=== PATIENT | male | born 1990 | race Caucasian/White ===

== ENCOUNTER 2025-06-01 10:56 | Emergency (ER) | payer BC, SELFPAY ==
--- OUTSIDE RECORDS SUMMARY | 2025-06-01 10:58 | XMS_ITS ---
Author Name VIKTORIA GOVEA Address [address] [place] [address] Phone Organization [facility] Address [address] [facility] [address] [place] [address] Phone Care Team Providers Care Medical Researcher Name Role Phone PINA GOVEA Unavailable [phone] ALLERGIES, ADVERSE REACTIONS AND ALERTS Allergy Name Allergy Date Allergy Status Allergy Severity Allergy Reaction Tramadol, [RxNorm: 23843] 05/15/2018 Current skin crawling MEDICATIONS RxNorm Brand Name Prescription Ordered Value Order Unit Start Date Date Status Fill Status Indications [id number] tizanidi ne 2 mg tablet SIG: tizanidine 2 mg oral tablet, 28 days, Dispense #140 Tablet, 0 RefillsDirecti ons: Take one by mouth three times daily and two by mouth QHS (one hundred forty) 140 tablet 2017 Historic [id number] gabapent in 300 mg capsule SIG: gabapentin 300 mg oral capsule, 28 days, Dispense #112 Capsule, 0 RefillsDirecti ons: Take 1 by mouth twice daily and two by mouth QHS (one hundred twelve) 112 capsule 2017 Historic [id number] oxycodon e 5 mg tablet SIG: oxycodone 5 mg oral tablet, 28 days, Dispense #28 Tablet, 0 RefillsDirecti ons: Take 1 oral tablet once a day- PRN only (twenty eight) 28 tablet 2017 Historic [id number] oxycodon e 5 mg tablet SIG: oxycodone 5 mg oral tablet, 10 days, Dispense #10 Tablet, 0 RefillsDirecti ons: Take 1 oral tablet once a day- PRN only (ten) 10 tablet 2017 Historic [id number] oxycodon e 5 mg tablet SIG: oxycodone 5 mg oral tablet, 28 days, Dispense #56 Tablet, 0 RefillsDirecti ons: Take 1 oral tablet twice a day -PRN (fifty six) 56 tablet 2017 Historic [id number] gabapent in 300 mg capsule SIG: gabapentin 300 mg oral capsule, 28 days, Dispense #112 Capsule, 0 RefillsDirecti ons: Take 1 by mouth twice daily and two by mouth QHS (one hundred twelve) 112 capsule 2017 Historic [id number] tizanidi ne 2 mg tablet SIG: tizanidine 2 mg oral tablet, 28 days, Dispense #140 Tablet, 0 RefillsDirecti ons: Take one by mouth three times daily and two by mouth QHS (one hundred forty) 140 tablet 2017 Historic [id number] baclofen 10 mg tablet SIG: baclofen 10 mg oral tablet, 28 days, Dispense #84 Tablet, 0 RefillsDirecti ons: Take 1 oral tablet three times a day (eighty four) 84 tablet 2017 Historic [id number] oxycodon e 5 mg tablet SIG: oxycodone 5 mg oral tablet, 28 days, Dispense #56 Tablet, 0 RefillsDirecti ons: Take 1 oral tablet twice a day -PRN (fifty six) 56 tablet 2017 Historic [id number] gabapent in 300 mg capsule SIG: gabapentin 300 mg oral capsule, 28 days, Dispense #112 Capsule, 0 RefillsDirecti ons: Take 1 by mouth twice daily and two by mouth QHS (one hundred twelve) 112 capsule 2017 Historic [id number] Xanax 1 mg tablet SIG: Xanax 1 mg oral tablet, 1 days, Dispense #1 Tablet, 0 RefillsDirecti ons: Take 1 oral tablet once a day/PRN 1 tablet 2017 Historic [id number] Belsomra 15 mg tablet SIG: Belsomra 15 mg oral tablet, 30 days, Dispense #30 Tablet, 0 RefillsDirecti ons: Take 1 oral tablet at bedtime- QHS (thirty) 30 tablet 2017 Historic [id number] gabapent in 300 mg capsule SIG: gabapentin 300 mg oral capsule, 28 days, Dispense #112 Capsule, 2 RefillsDirecti ons: Take 1 by mouth twice daily and two by mouth QHS (one hundred twelve) 112 capsule 2017 Historic [id number] baclofen 10 mg tablet SIG: baclofen 10 mg oral tablet, 28 days, Dispense #84 Tablet, 2 RefillsDirecti ons: Take 1 oral tablet three times a day (eighty four) 84 tablet 2017 Historic [id number] Narcan 4 mg/actua tion spray,no n-aeroso l SIG: Narcan 4 mg/actuation nasal spray,non-aero ignacia, 2 days, Dispense #2 Novelty, 0 RefillsDirecti ons: 4mg (contents of 1 nasal spray) as a single dose; may repeat every 2 to 3 minutes. 2 spray,n on-aero ignacia 2017 Historic [id number] oxycodon e 5 mg tablet SIG: oxycodone 5 mg oral tablet, 28 days, Dispense #56 Tablet, 0 RefillsDirecti ons: Take 1 oral tablet twice a day -PRN (fifty six) 56 tablet 2017 Historic [id number] Belsomra 15 mg tablet SIG: Belsomra 15 mg oral tablet, 30 days, Dispense #30 Tablet, 2 RefillsDirecti ons: Take 1 oral tablet at bedtime- QHS (thirty) 30 tablet 2017 Historic [id number] oxycodon e 5 mg tablet SIG: oxycodone 5 mg oral tablet, 28 days, Dispense #56 Tablet, 0 RefillsDirecti ons: Take 1 oral tablet twice a day -PRN (fifty six) 56 tablet 2017 Historic [id number] oxycodon e 5 mg tablet SIG: oxycodone 5 mg oral tablet, 28 days, Dispense #56 Tablet, 0 RefillsDirecti ons: Take 1 oral tablet twice a day -PRN (fifty six) 56 tablet 2017 Historic [id number] tizanidi ne 2 mg tablet SIG: tizanidine 2 mg oral tablet, 28 days, Dispense #112 Tablet, 0 RefillsDirecti ons: Take 1/2-1 by mouth QID- PRN (one hundred forty) 112 tablet 2017 Historic [id number] gabapent in 300 mg capsule SIG: gabapentin 300 mg oral capsule, 28 days, Dispense #112 Capsule, 2 RefillsDirecti ons: Take 1 by mouth twice daily and two by mouth QHS (one hundred twelve) 112 capsule 2017 Historic [id number] oxycodon e 5 mg tablet SIG: oxycodone 5 mg oral tablet, 28 days, Dispense #84 Tablet, 0 RefillsDirecti ons: Take 1 oral tablet TID -PRN (eighty four) 84 tablet 2017 Historic [id number] tizanidi ne 2 mg tablet SIG: tizanidine 2 mg oral tablet, 28 days, Dispense #112 Tablet, 0 RefillsDirecti ons: Take 1/2-1 by mouth QID- PRN (one hundred forty) 112 tablet 2018 Historic [id number] gabapent in 300 mg capsule SIG: gabapentin 300 mg oral capsule, 28 days, Dispense #112 Capsule, 2 RefillsDirecti ons: Take 1 by mouth twice daily and two by mouth QHS (one hundred twelve) 112 capsule 2018 Historic [id number] oxycodon e 5 mg tablet SIG: oxycodone 5 mg oral tablet, 14 days, Dispense #42 Tablet, 0 RefillsDirecti ons: Take 1 oral tablet three times a day- PRN (forty two) PLEASE FILL FOR BRIDGE RX 42 tablet 2018 Historic [id number] oxycodon e 5 mg tablet SIG: oxycodone 5 mg oral tablet, 14 days, Dispense #42 Tablet, 0 RefillsDirecti ons: Take 1 oral tablet three times a day- PRN (forty two) PLEASE FILL FOR BRIDGE RX 42 tablet 2018 Historic [id number] oxycodon e 5 mg tablet SIG: oxycodone 5 mg oral tablet, 7 days, Dispense #21 Tablet, 0 RefillsDirecti ons: Take 1 oral tablet three times a day- PRN (forty two) PLEASE FILL FOR BRIDGE RX 21 tablet 2018 Historic [id number] oxycodon e 5 mg tablet SIG: oxycodone 5 mg oral tablet, 7 days, Dispense #21 Tablet, 0 RefillsDirecti ons: Take 1 oral tablet three times a day- PRN (twenty one) PLEASE FILL FOR BRIDGE RX 21 tablet 2018 Historic [id number] oxycodon e 5 mg tablet SIG: oxycodone 5 mg oral tablet, 4 days, Dispense #12 Tablet, 0 RefillsDirecti ons: Take 1 oral tablet three times a day- PRN (twelve) PLEASE FILL FOR BRIDGE RX 12 tablet 2018 Historic [id number] oxycodon e 5 mg tablet SIG: oxycodone 5 mg oral tablet, 28 days, Dispense #84 Tablet, 0 RefillsDirecti ons: Take 1 oral tablet TID -PRN (eighty four) 84 tablet 2018 Historic [id number] tizanidi ne 2 mg tablet SIG: tizanidine 2 mg oral tablet, 28 days, Dispense #112 Tablet, 0 RefillsDirecti ons: Take 1/2-1 by mouth QID- PRN (one hundred forty) 112 tablet 2018 Historic [id number] oxycodon e 5 mg tablet SIG: oxycodone 5 mg oral tablet, 28 days, Dispense #84 Tablet, 0 RefillsDirecti ons: Take 1 oral tablet TID -PRN (eighty four) 84 tablet 2018 Historic [id number] oxycodon e 5 mg tablet SIG: oxycodone 5 mg oral tablet, 28 days, Dispense #84 Tablet, 0 RefillsDirecti ons: Take 1 oral tablet TID -PRN (eighty four) 84 tablet 2018 Historic [id number] Dilaudid 2 mg tablet SIG: Dilaudid 2 mg oral tablet, 28 days, Dispense #84 Tablet, 0 RefillsDirecti ons: Take 1/2-1 oral tablet three times a day- PRN (eighty four) 84 tablet 2018 Historic [id number] gabapent in 300 mg capsule SIG: gabapentin 300 mg oral capsule, 28 days, Dispense #112 Capsule, 2 RefillsDirecti ons: Take 1 by mouth twice daily and two by mouth QHS (one hundred twelve) 112 capsule 2018 Historic [id number] Belsomra 15 mg tablet SIG: Belsomra 15 mg oral tablet, 30 days, Dispense #30 Tablet, 2 RefillsDirecti ons: Take 1 oral tablet at bedtime- QHS (thirty) 30 tablet 2018 Historic [id number] tizanidi ne 2 mg tablet SIG: tizanidine 2 mg oral tablet, 28 days, Dispense #112 Tablet, 0 RefillsDirecti ons: Take 1/2-1 by mouth QID- PRN (one hundred forty) 112 tablet 2018 Historic [id number] Belsomra 15 mg tablet SIG: Belsomra 15 mg oral tablet, 30 days, Dispense #30 Tablet, 2 RefillsDirecti ons: Take 1 oral tablet at bedtime- QHS (thirty) 30 tablet 2018 Historic [id number] gabapent in 300 mg capsule SIG: gabapentin 300 mg oral capsule, 28 days, Dispense #112 Capsule, 2 RefillsDirecti ons: Take 1 by mouth twice daily and two by mouth QHS (one hundred twelve) 112 capsule 2018 Historic [id number] Dilaudid 2 mg tablet SIG: Dilaudid 2 mg oral tablet, 28 days, Dispense #126 Tablet, 0 RefillsDirecti ons: Take 1.5 oral tablet three times a day- PRN (one hundred twenty six) 126 tablet 2018 Historic [id number] Dilaudid 2 mg tablet SIG: Dilaudid 2 mg oral tablet, 28 days, Dispense #126 Tablet, 0 RefillsDirecti ons: Take 1.5 oral tablet three times a day- PRN (one hundred twenty six) 126 tablet 2018 Historic [id number] Dilaudid 2 mg tablet SIG: Dilaudid 2 mg oral tablet, 28 days, Dispense #126 Tablet, 0 RefillsDirecti ons: Take 1.5 oral tablet three times a day- PRN (one hundred twenty six) 126 tablet 2018 Historic [id number] gabapent in 300 mg capsule SIG: gabapentin 300 mg oral capsule, 28 days, Dispense #112 Capsule, 2 RefillsDirecti ons: Take 1 by mouth twice daily and two by mouth QHS (one hundred twelve) 112 capsule 2018 Historic [id number] Belsomra 15 mg tablet SIG: Belsomra 15 mg oral tablet, 30 days, Dispense #30 Tablet, 2 RefillsDirecti ons: Take 1 oral tablet at bedtime- QHS (thirty) 30 tablet 2018 Historic [id number] tizanidi ne 2 mg tablet SIG: tizanidine 2 mg oral tablet, 28 days, Dispense #112 Tablet, 0 RefillsDirecti ons: Take 1/2-1 by mouth QID- PRN (one hundred forty) 112 tablet 2018 Historic [id number] Dilaudid 2 mg tablet SIG: Dilaudid 2 mg oral tablet, 28 days, Dispense #126 Tablet, 0 RefillsDirecti ons: Take 1.5 oral tablet three times a day- PRN (one hundred twenty six) 126 tablet 2018 Historic [id number] Dilaudid 2 mg tablet SIG: Dilaudid 2 mg oral tablet, 21 days, Dispense #63 Tablet, 0 RefillsDirecti ons: Take 1.5 oral tablet three times a day- PRN (sixty three) 63 tablet 2018 Historic [id number] Dilaudid 2 mg tablet SIG: Dilaudid 2 mg oral tablet, 28 days, Dispense #126 Tablet, 0 RefillsDirecti ons: Take 1.5 oral tablet three times a day- PRN (one hundred twenty six) 126 tablet 2018 Historic [id number] Lyrica 50 mg capsule SIG: Lyrica 50 mg oral capsule, 28 days, Dispense #84 Capsule, 0 RefillsDirecti ons: Take 1 oral capsule QHS, titrate to TID as tolerated (eighty four) 84 capsule 2018 Historic [id number] tizanidi ne 4 mg tablet SIG: tizanidine 4 mg oral tablet, 28 days, Dispense #112 Tablet, 0 RefillsDirecti ons: Take 1/2-1 oral tablet four times a day- PRN (one hundred twelve) 112 tablet 2018 Historic [id number] Dilaudid 2 mg tablet SIG: Dilaudid 2 mg oral tablet, 28 days, Dispense #126 Tablet, 0 RefillsDirecti ons: Take 1.5 oral tablet three times a day- PRN (one hundred twenty six) 126 tablet 2018 Historic [id number] Belsomra 15 mg tablet SIG: Belsomra 15 mg oral tablet, 30 days, Dispense #30 Tablet, 2 RefillsDirecti ons: Take 1 oral tablet at bedtime- QHS (thirty) 30 tablet 2018 Historic [id number] Dilaudid 2 mg tablet SIG: Dilaudid 2 mg oral tablet, 28 days, Dispense #126 Tablet, 0 RefillsDirecti ons: Take 1.5 oral tablet three times a day- PRN (one hundred twenty six) 126 tablet 2018 Historic [id number] Lyrica 75 mg capsule SIG: Lyrica 75 mg oral capsule, 28 days, Dispense #112 Capsule, 0 RefillsDirecti ons: Take 1 PO QAM, 1 at lunch, and 2 PO QHS (one hundred twelve) 112 capsule 2018 Historic [id number] Dilaudid 4 mg tablet SIG: Dilaudid 4 mg oral tablet, 28 days, Dispense #84 Tablet, 0 RefillsDirecti ons: Take 1 oral tablet three times a day (eighty four) 84 tablet 2018 Historic [id number] Dilaudid 4 mg tablet SIG: Dilaudid 4 mg oral tablet, 28 days, Dispense #84 Tablet, 0 RefillsDirecti ons: Take 1 oral tablet three times a day (eighty four) 84 tablet 2018 Historic [id number] Lyrica 75 mg capsule SIG: Lyrica 75 mg oral capsule, 28 days, Dispense #112 Capsule, 0 RefillsDirecti ons: Take 1 PO QAM, 1 at lunch, and 2 PO QHS (one hundred twelve) 112 capsule 2018 Historic [id number] tizanidi ne 4 mg tablet SIG: tizanidine 4 mg oral tablet, 28 days, Dispense #112 Tablet, 0 RefillsDirecti ons: Take 1/2-1 oral tablet four times a day- PRN (one hundred twelve) 112 tablet 2018 Historic [id number] tizanidi ne 4 mg tablet SIG: tizanidine 4 mg oral tablet, 28 days, Dispense #112 Tablet, 0 RefillsDirecti ons: Take 1/2-1 oral tablet four times a day- PRN (one hundred twelve) 112 tablet 2018 Historic [id number] Lyrica 75 mg capsule SIG: Lyrica 75 mg oral capsule, 28 days, Dispense #112 Capsule, 2 RefillsDirecti ons: Take 1 PO QAM, 1 at lunch, and 2 PO QHS (one hundred twelve) 112 capsule 2018 Historic [id number] Percocet 5-325 mg tablet SIG: Percocet 5-325 mg oral tablet, 28 days, Dispense #84 Tablet, 0 RefillsDirecti ons: Take 1/2-1 oral tablet three times a day- as directed (eighty four) 84 tablet 2018 Historic [id number] Percocet 5-325 mg tablet SIG: Percocet 5-325 mg oral tablet, 14 days, Dispense #42 Tablet, 0 RefillsDirecti ons: Take 1/2-1 oral tablet three times a day- as directed (forty two) 42 tablet 2019 Historic [id number] Percocet 5-325 mg tablet SIG: Percocet 5-325 mg oral tablet, 14 days, Dispense #42 Tablet, 0 RefillsDirecti ons: Take 1/2-1 oral tablet three times a day- as directed (forty two) 42 tablet 2019 Historic [id number] Lexapro 10 mg tablet SIG: Lexapro 10 mg oral tablet, 28 days, Dispense #28 Tablet, 0 RefillsDirecti ons: Take 1 oral tablet once a day (twenty eight) 28 tablet 2019 Historic [id number] Lyrica 75 mg capsule SIG: Lyrica 75 mg oral capsule, 28 days, Dispense #112 Capsule, 2 RefillsDirecti ons: Take 1 PO QAM, 1 at lunch, and 2 PO QHS (one hundred twelve) 112 capsule 2019 Historic [id number] Percocet 5-325 mg tablet SIG: Percocet 5-325 mg oral tablet, 7 days, Dispense #21 Tablet, 0 RefillsDirecti ons: Take 1/2-1 oral tablet three times a day- as directed (twenty one) 21 tablet 2019 Historic [id number] Belsomra 15 mg tablet SIG: Belsomra 15 mg oral tablet, 30 days, Dispense #30 Tablet, 2 RefillsDirecti ons: Take 1 oral tablet at bedtime- QHS (thirty) 30 tablet 2019 Historic [id number] Lyrica 75 mg capsule SIG: Lyrica 75 mg oral capsule, 28 days, Dispense #112 Capsule, 2 RefillsDirecti ons: Take 1 PO QAM, 1 at lunch, and 2 PO QHS (one hundred twelve) 112 capsule 2019 Historic [id number] Percocet 5-325 mg tablet SIG: Percocet 5-325 mg oral tablet, 7 days, Dispense #21 Tablet, 0 RefillsDirecti ons: Take 1/2-1 oral tablet three times a day- as directed (twenty one) 21 tablet 2019 Historic [id number] Belsomra 15 mg tablet SIG: Belsomra 15 mg oral tablet, 30 days, Dispense #30 Tablet, 2 RefillsDirecti ons: Take 1 oral tablet at bedtime- QHS (thirty) 30 tablet 2019 Historic [id number] Percocet 5-325 mg tablet SIG: Percocet 5-325 mg oral tablet, 7 days, Dispense #21 Tablet, 0 RefillsDirecti ons: Take 1/2-1 oral tablet three times a day- as directed (twenty one) 21 tablet 2019 Historic [id number] cycloben zaprine 10 mg tablet SIG: cyclobenzaprin e 10 mg oral tablet, 28 days, Dispense #84 Tablet, 0 RefillsDirecti ons: Take 1 oral tablet three times a day- PRN (eighty four) 84 tablet 2019 Historic [id number] Percocet 5-325 mg tablet SIG: Percocet 5-325 mg oral tablet, 10 days, Dispense #30 Tablet, 0 RefillsDirecti ons: Take 1 oral tablet three times a day- as directed (thirty) 30 tablet 2019 Historic [id number] Lexapro 10 mg tablet SIG: Lexapro 10 mg oral tablet, 28 days, Dispense #28 Tablet, 0 RefillsDirecti ons: Take 1 oral tablet once a day (twenty eight) 28 tablet 2019 Historic [id number] Percocet 5-325 mg tablet SIG: Percocet 5-325 mg oral tablet, 10 days, Dispense #30 Tablet, 0 RefillsDirecti ons: Take 1 oral tablet three times a day- as directed (thirty) 30 tablet 2019 Historic [id number] Percocet 5-325 mg tablet SIG: Percocet 5-325 mg oral tablet, 4 days, Dispense #12 Tablet, 0 RefillsDirecti ons: Take 1 oral tablet three times a day- as directed (twelve) 12 tablet 2019 Historic [id number] Percocet 5-325 mg tablet SIG: Percocet 5-325 mg oral tablet, 7 days, Dispense #21 Tablet, 0 RefillsDirecti ons: Take 1 oral tablet three times a day- as directed (twenty one) 21 tablet 2019 Historic [id number] baclofen 10 mg tablet SIG: baclofen 10 mg oral tablet, 14 days, Dispense #42 Tablet, 0 RefillsDirecti ons: Take 1/2-1 oral tablet three times a day- PRN (forty two) 42 tablet 2019 Historic [id number] Percocet 5-325 mg tablet SIG: Percocet 5-325 mg oral tablet, 14 days, Dispense #42 Tablet, 0 RefillsDirecti ons: Take 1 oral tablet three times a day- as directed (forty two) 42 tablet 2019 Historic [id number] Lexapro 10 mg tablet SIG: Lexapro 10 mg oral tablet, 28 days, Dispense #28 Tablet, 0 RefillsDirecti ons: Take 1 oral tablet once a day (twenty eight) 28 tablet 2019 Historic [id number] Lexapro 20 mg tablet SIG: Lexapro 20 mg oral tablet, 28 days, Dispense #28 Tablet, 0 RefillsDirecti ons: Take 1 oral tablet once a day (twenty eight) 28 tablet 2019 Historic [id number] Percocet 7.5-325 mg tablet SIG: Percocet 7.5-325 mg oral tablet, 14 days, Dispense #42 Tablet, 0 RefillsDirecti ons: Take 1 oral tablet three times a day- as directed (forty two) 42 tablet 2019 Historic [id number] baclofen 10 mg tablet SIG: baclofen 10 mg oral tablet, 14 days, Dispense #42 Tablet, 0 RefillsDirecti ons: Take 1/2-1 oral tablet three times a day- PRN (forty two) 42 tablet 2019 Historic [id number] Lexapro 20 mg tablet SIG: Lexapro 20 mg oral tablet, 28 days, Dispense #28 Tablet, 0 RefillsDirecti ons: Take 1 oral tablet once a day (twenty eight) 28 tablet 2019 Historic [id number] Percocet 7.5-325 mg tablet SIG: Percocet 7.5-325 mg oral tablet, 21 days, Dispense #63 Tablet, 0 RefillsDirecti ons: Take 1 oral tablet three times a day- as directed (sixty three) 63 tablet 2019 Historic [id number] baclofen 20 mg tablet SIG: baclofen 20 mg oral tablet, 28 days, Dispense #84 Tablet, 0 RefillsDirecti ons: Take 1/2-1 oral tablet three times a day- PRN (eighty four) 84 tablet 2019 Historic [id number] Narcan 4 mg/actua tion spray,no n-aeroso l SIG: Narcan 4 mg/actuation nasal spray,non-aero ignacia, 2 days, Dispense #2 Each, 0 RefillsDirecti ons: 4mg (contents of 1 nasal spray) as a single dose; may repeat every 2 to 3 minutes. Use in OD only. 2 spray,n on-aero ignacia 2019 Historic [id number] Percocet 7.5-325 mg tablet SIG: Percocet 7.5-325 mg oral tablet, 21 days, Dispense #63 Tablet, 0 RefillsDirecti ons: Take 1 oral tablet three times a day- as directed (sixty three) 63 tablet 2019 Historic [id number] baclofen 20 mg tablet SIG: baclofen 20 mg oral tablet, 28 days, Dispense #84 Tablet, 2 RefillsDirecti ons: Take 1/2-1 oral tablet three times a day- PRN (eighty four) 84 tablet 2019 Historic [id number] Lexapro 20 mg tablet SIG: Lexapro 20 mg oral tablet, 28 days, Dispense #28 Tablet, 2 RefillsDirecti ons: Take 1 oral tablet once a day (twenty eight) 28 tablet 2019 Historic [id number] Percocet 7.5-325 mg tablet SIG: Percocet 7.5-325 mg oral tablet, 7 days, Dispense #21 Tablet, 0 RefillsDirecti ons: Take 1 oral tablet three times a day- as directed (twenty one) 21 tablet 2019 Historic [id number] Percocet 7.5-325 mg tablet SIG: Percocet 7.5-325 mg oral tablet, 28 days, Dispense #84 Tablet, 0 RefillsDirecti ons: Take 1 oral tablet three times a day- as directed (eighty four) 84 tablet 2019 Historic [id number] Lyrica 75 mg capsule SIG: Lyrica 75 mg oral capsule, 28 days, Dispense #112 Capsule, 2 RefillsDirecti ons: Take 1 PO QAM, 1 at lunch, and 2 PO QHS (one hundred twelve) 112 capsule 2019 Historic [id number] Belsomra 15 mg tablet SIG: Belsomra 15 mg oral tablet, 30 days, Dispense #30 Tablet, 2 RefillsDirecti ons: Take 1 oral tablet at bedtime- QHS (thirty) 30 tablet 2019 Historic [id number] baclofen 20 mg tablet SIG: baclofen 20 mg oral tablet, 28 days, Dispense #112 Tablet, 0 RefillsDirecti ons: Take 1 oral tablet four times a day- PRN (one hundred twelve) 112 tablet 2019 Historic [id number] orphenad rine citrate 100 mg tablet extended release SIG: orphenadrine citrate 100 mg oral tablet extended release, 28 days, Dispense #56 Tablet, 0 RefillsDirecti ons: Take 1 oral tablet twice a day, consistently every 12 hours (fifty six) 56 tablet extende d release 2019 Historic [id number] Percocet 7.5-325 mg tablet SIG: Percocet 7.5-325 mg oral tablet, 28 days, Dispense #84 Tablet, 0 RefillsDirecti ons: Take 1 oral tablet three times a day- as directed (eighty four) 84 tablet 2019 Historic [id number] Lexapro 20 mg tablet SIG: Lexapro 20 mg oral tablet, 14 days, Dispense #14 Tablet, 0 RefillsDirecti ons: Take 1 oral tablet once a day (fourteen) 14 tablet 2019 Historic [id number] Percocet 7.5-325 mg tablet SIG: Percocet 7.5-325 mg oral tablet, 14 days, Dispense #42 Tablet, 0 RefillsDirecti ons: Take 1 oral tablet three times a day- as directed (forty two) 42 tablet 2019 Historic [id number] orphenad rine citrate 100 mg tablet extended release SIG: orphenadrine citrate 100 mg oral tablet extended release, 14 days, Dispense #28 Tablet, 0 RefillsDirecti ons: Take 1 oral tablet twice a day, consistently every 12 hours (twenty eight) 28 tablet extende d release 2019 Historic [id number] Lexapro 20 mg tablet SIG: Lexapro 20 mg oral tablet, 14 days, Dispense #14 Tablet, 0 RefillsDirecti ons: Take 1 oral tablet once a day (fourteen) 14 tablet 2019 Historic [id number] Percocet 7.5-325 mg tablet SIG: Percocet 7.5-325 mg oral tablet, 14 days, Dispense #42 Tablet, 0 RefillsDirecti ons: Take 1 oral tablet three times a day- as directed (forty two) 42 tablet 2019 Historic [id number] orphenad rine citrate 100 mg tablet extended release SIG: orphenadrine citrate 100 mg oral tablet extended release, 14 days, Dispense #28 Tablet, 0 RefillsDirecti ons: Take 1 oral tablet twice a day, consistently every 12 hours (twenty eight) 28 tablet extende d release 2019 Historic [id number] Skelaxin 800 mg tablet SIG: Skelaxin 800 mg oral tablet, 28 days, Dispense #84 Tablet, 0 RefillsDirecti ons: Take 1 oral tablet three times a day (eighty four) 84 tablet 2019 Historic [id number] Lexapro 20 mg tablet SIG: Lexapro 20 mg oral tablet, 28 days, Dispense #28 Tablet, 0 RefillsDirecti ons: Take 1 oral tablet once a day (twenty eight) 28 tablet 2019 Historic [id number] Percocet 7.5-325 mg tablet SIG: Percocet 7.5-325 mg oral tablet, 28 days, Dispense #84 Tablet, 0 RefillsDirecti ons: Take 1 oral tablet three times a day- as directed (eighty four) 84 tablet 2019 Historic [id number] chlorzox azone 500 mg tablet SIG: chlorzoxazone 500 mg oral tablet, 28 days, Dispense #84 Tablet, 0 RefillsDirecti ons: Take 1 oral tablet three times a day (eighty four) 84 tablet 2019 Historic [id number] Percocet 7.5-325 mg tablet SIG: Percocet 7.5-325 mg oral tablet, 28 days, Dispense #84 Tablet, 0 RefillsDirecti ons: Take 1 oral tablet three times a day- as directed (eighty four) 84 tablet 2019 Historic [id number] Lyrica 75 mg capsule SIG: Lyrica 75 mg oral capsule, 28 days, Dispense #112 Capsule, 2 RefillsDirecti ons: Take 1 PO QAM, 1 at lunch, and 2 PO QHS (one hundred twelve) 112 capsule 2019 Historic [id number] Lexapro 20 mg tablet SIG: Lexapro 20 mg oral tablet, 28 days, Dispense #42 Tablet, 0 RefillsDirecti ons: Take 1.5 oral tablet once a day (forty two) 42 tablet 2019 Historic [id number] Belsomra 15 mg tablet SIG: Belsomra 15 mg oral tablet, 30 days, Dispense #30 Tablet, 2 RefillsDirecti ons: Take 1 oral tablet at bedtime- QHS (thirty) 30 tablet 2019 Historic [id number] Percocet 7.5-325 mg tablet SIG: Percocet 7.5-325 mg oral tablet, 3 days, Dispense #9 Tablet, 0 RefillsDirecti ons: Take 1 oral tablet three times a day- as directed (nine) 9 tablet 2019 Historic [id number] Lyrica 75 mg capsule SIG: Lyrica 75 mg oral capsule, 3 days, Dispense #12 Capsule, 2 RefillsDirecti ons: Take 1 PO QAM, 1 at lunch, and 2 PO QHS (twelve) 12 capsule 2019 Historic [id number] Lexapro 20 mg tablet SIG: Lexapro 20 mg oral tablet, 3 days, Dispense #5 Tablet, 0 RefillsDirecti ons: Take 1.5 oral tablet once a day (five) 5 tablet 2019 Historic [id number] chlorzox azone 500 mg tablet SIG: chlorzoxazone 500 mg oral tablet, 28 days, Dispense #84 Tablet, 0 RefillsDirecti ons: Take 1 oral tablet three times a day (eighty four) 84 tablet 2019 Historic [id number] Lyrica 75 mg capsule SIG: Lyrica 75 mg oral capsule, 28 days, Dispense #112 Capsule, 0 RefillsDirecti ons: Take 1 PO QAM, 1 at lunch, and 2 PO QHS (one hundred twelve) 112 capsule 2019 Historic [id number] Lexapro 20 mg tablet SIG: Lexapro 20 mg oral tablet, 28 days, Dispense #42 Tablet, 0 RefillsDirecti ons: Take 1.5 oral tablet once a day (forty two) 42 tablet 2019 Historic [id number] chlorzox azone 500 mg tablet SIG: chlorzoxazone 500 mg oral tablet, 28 days, Dispense #112 Tablet, 0 RefillsDirecti ons: Take 1 oral tablet up to four times a day- as directed (one hundred twelve) 112 tablet 2019 Historic [id number] Lexapro 20 mg tablet SIG: Lexapro 20 mg oral tablet, 28 days, Dispense #42 Tablet, 0 RefillsDirecti ons: Take 1.5 oral tablet once a day (forty two) 42 tablet 2019 Historic [id number] Percocet 7.5-325 mg tablet SIG: Percocet 7.5-325 mg oral tablet, 28 days, Dispense #84 Tablet, 0 RefillsDirecti ons: Take 1 oral tablet three times a day- as directed (eighty four) 84 tablet 2019 Historic [id number] Percocet 7.5-325 mg tablet SIG: Percocet 7.5-325 mg oral tablet, 28 days, Dispense #84 Tablet, 0 RefillsDirecti ons: Take 1 oral tablet three times a day- as directed (eighty four) 84 tablet 2019 Historic [id number] Lexapro 20 mg tablet SIG: Lexapro 20 mg oral tablet, 28 days, Dispense #42 Tablet, 0 RefillsDirecti ons: Take 1.5 oral tablet once a day (forty two) 42 tablet 2019 Historic [id number] hydroxyz ine pamoate 25 mg capsule SIG: hydroxyzine pamoate 25 mg oral capsule, 28 days, Dispense #28 Capsule, 0 RefillsDirecti ons: Take 1 oral capsule at bedtime PRN only (twenty eight) 28 capsule 2019 Historic [id number] chlorzox azone 500 mg tablet SIG: chlorzoxazone 500 mg oral tablet, 28 days, Dispense #112 Tablet, 0 RefillsDirecti ons: Take 1 oral tablet up to four times a day- as directed (one hundred twelve) 112 tablet 2019 Historic [id number] chlorzox azone 750 mg tablet SIG: chlorzoxazone 750 mg oral tablet, 28 days, Dispense #112 Tablet, 0 RefillsDirecti ons: Take 1 oral tablet four times a day- PRN (one hundred twelve) 112 tablet 2019 Historic [id number] Percocet 7.5-325 mg tablet SIG: Percocet 7.5-325 mg oral tablet, 28 days, Dispense #84 Tablet, 0 RefillsDirecti ons: Take 1 oral tablet three times a day- as directed (eighty four) 84 tablet 2019 Historic [id number] hydroxyz ine pamoate 25 mg capsule SIG: hydroxyzine pamoate 25 mg oral capsule, 28 days, Dispense #28 Capsule, 2 RefillsDirecti ons: Take 1 oral capsule at bedtime PRN only (twenty eight) 28 capsule 2019 Historic [id number] Lexapro 20 mg tablet SIG: Lexapro 20 mg oral tablet, 28 days, Dispense #42 Tablet, 2 RefillsDirecti ons: Take 1.5 oral tablet once a day (forty two) 42 tablet 2019 Historic [id number] Lyrica 75 mg capsule SIG: Lyrica 75 mg oral capsule, 28 days, Dispense #112 Capsule, 2 RefillsDirecti ons: Take 1 PO QAM, 1 at lunch, and 2 PO QHS (one hundred twelve) 112 capsule 2019 Historic [id number] Lyrica 75 mg capsule SIG: Lyrica 75 mg oral capsule, 28 days, Dispense #112 Capsule, 2 RefillsDirecti ons: Take 1 PO QAM, 1 at lunch, and 2 PO QHS (one hundred twelve) 112 capsule 2020 Historic [id number] Percocet 7.5-325 mg tablet SIG: Percocet 7.5-325 mg oral tablet, 28 days, Dispense #84 Tablet, 0 RefillsDirecti ons: Take 1 oral tablet three times a day- as directed (eighty four) 84 tablet 2020 Historic [id number] tizanidi ne 2 mg tablet SIG: tizanidine 2 mg oral tablet, 28 days, Dispense #84 Tablet, 0 RefillsDirecti ons: Take 1 oral tablet four times a day- PRN (eighty four) 84 tablet 2020 Historic [id number] Lyrica 150 mg capsule SIG: Lyrica 150 mg oral capsule, 28 days, Dispense #56 Capsule, 2 RefillsDirecti ons: Take 1 oral capsule twice a day 56 capsule 2020 Historic [id number] tizanidi ne 2 mg tablet SIG: tizanidine 2 mg oral tablet, 28 days, Dispense #84 Tablet, 3 RefillsDirecti ons: Take 1 oral tablet four times a day- PRN (eighty four) 84 tablet 2020 Historic [id number] Percocet 7.5-325 mg tablet SIG: Percocet 7.5-325 mg oral tablet, 28 days, Dispense #84 Tablet, 0 RefillsDirecti ons: Take 1 oral tablet three times a day- as directed (eighty four) 84 tablet 2020 Historic [id number] Belsomra 15 mg tablet SIG: Belsomra 15 mg oral tablet, 30 days, Dispense #30 Tablet, 2 RefillsDirecti ons: Take 1 oral tablet at bedtime- [facility] (thirty) 30 tablet 2020 Historic [id number] hydroxyz ine pamoate 25 mg capsule SIG: hydroxyzine pamoate 25 mg oral capsule, 28 days, Dispense #28 Capsule, 2 RefillsDirecti ons: Take 1 oral capsule at bedtime PRN only (twenty eight) 28 capsule 2020 Historic [id number] Lexapro 20 mg tablet SIG: Lexapro 20 mg oral tablet, 28 days, Dispense #42 Tablet, 2 RefillsDirecti ons: Take 1.5 oral tablet once a day (forty two) 42 tablet 2020 Historic [id number] Percocet 7.5-325 mg tablet SIG: Percocet 7.5-325 mg oral tablet, 28 days, Dispense #84 Tablet, 0 RefillsDirecti ons: Take 1 oral tablet three times a day- as directed (eighty four) 84 tablet 2020 Historic [id number] Percocet 7.5-325 mg tablet SIG: Percocet 7.5-325 mg oral tablet, 28 days, Dispense #84 Tablet, 0 RefillsDirecti ons: Take 1 oral tablet three times a day- as directed (eighty four) 84 tablet 2020 Historic [id number] Lyrica 150 mg capsule SIG: Lyrica 150 mg oral capsule, 28 days, Dispense #56 Capsule, 2 RefillsDirecti ons: Take 1 oral capsule twice a day (fifty six) 56 capsule 2020 Historic [id number] Percocet 7.5-325 mg tablet SIG: Percocet 7.5-325 mg oral tablet, 28 days, Dispense #84 Tablet, 0 RefillsDirecti ons: Take 1 oral tablet three times a day- as directed (eighty four) 84 tablet 2020 Historic [id number] tizanidi ne 2 mg tablet SIG: tizanidine 2 mg oral tablet, 28 days, Dispense #84 Tablet, 2 RefillsDirecti ons: Take 1 oral tablet four times a day- PRN (eighty four) 84 tablet 2020 Historic [id number] Belsomra 15 mg tablet SIG: Belsomra 15 mg oral tablet, 30 days, Dispense #30 Tablet, 2 RefillsDirecti ons: Take 1 oral tablet at bedtime- [facility] (thirty) 30 tablet 2020 Historic [id number] hydroxyz ine pamoate 25 mg capsule SIG: hydroxyzine pamoate 25 mg oral capsule, 28 days, Dispense #28 Capsule, 2 RefillsDirecti ons: Take 1 oral capsule at bedtime PRN only (twenty eight) 28 capsule 2020 Historic [id number] Lexapro 20 mg tablet SIG: Lexapro 20 mg oral tablet, 28 days, Dispense #42 Tablet, 2 RefillsDirecti ons: Take 1.5 oral tablet once a day (forty two) 42 tablet 2020 Historic [id number] Percocet 7.5-325 mg tablet SIG: Percocet 7.5-325 mg oral tablet, 28 days, Dispense #84 Tablet, 0 RefillsDirecti ons: Take 1 oral tablet three times a day- as directed (eighty four) 84 tablet 2020 Historic [id number] Lexapro 10 mg tablet SIG: Lexapro 10 mg oral tablet, 28 days, Dispense #84 Tablet, 0 RefillsDirecti ons: Take 3 PO QD (eighty four) DOSE CHANGE 84 tablet 2020 Historic [id number] Percocet 7.5-325 mg tablet SIG: Percocet 7.5-325 mg oral tablet, 28 days, Dispense #84 Tablet, 0 RefillsDirecti ons: Take 1 oral tablet three times a day- as directed (eighty four) 84 tablet 2020 Historic [id number] meloxica m 7.5 mg tablet SIG: meloxicam 7.5 mg oral tablet, 28 days, Dispense #56 Tablet, 0 RefillsDirecti ons: Take 1 oral tablet twice a day, consistently every 12 hours WITH FOOD (fifty six) 56 tablet 2020 Historic [id number] Lyrica 150 mg capsule SIG: Lyrica 150 mg oral capsule, 28 days, Dispense #56 Capsule, 2 RefillsDirecti ons: Take 1 oral capsule twice a day (fifty six) 56 capsule 2020 Historic [id number] Percocet 7.5-325 mg tablet SIG: Percocet 7.5-325 mg oral tablet, 28 days, Dispense #84 Tablet, 0 RefillsDirecti ons: Take 1 oral tablet three times a day- as directed (eighty four) 84 tablet 2020 Historic [id number] tizanidi ne 2 mg tablet SIG: tizanidine 2 mg oral tablet, 28 days, Dispense #84 Tablet, 2 RefillsDirecti ons: Take 1 oral tablet four times a day- PRN (eighty four) 84 tablet 2020 Historic [id number] Belsomra 15 mg tablet SIG: Belsomra 15 mg oral tablet, 30 days, Dispense #30 Tablet, 2 RefillsDirecti ons: Take 1 oral tablet at bedtime- [facility] (thirty) 30 tablet 2020 Historic [id number] Lexapro 10 mg tablet SIG: Lexapro 10 mg oral tablet, 28 days, Dispense #84 Tablet, 0 RefillsDirecti ons: Take 3 PO QD (eighty four) 84 tablet 2020 Historic [id number] meloxica m 7.5 mg tablet SIG: meloxicam 7.5 mg oral tablet, 28 days, Dispense #56 Tablet, 1 RefillsDirecti ons: Take 1 oral tablet twice a day, consistently every 12 hours WITH FOOD (fifty six) 56 tablet 2020 Historic [id number] Percocet 7.5-325 mg tablet SIG: Percocet 7.5-325 mg oral tablet, 28 days, Dispense #84 Tablet, 0 RefillsDirecti ons: Take 1 oral tablet three times a day- as directed (eighty four) 84 tablet 2020 Historic [id number] Lexapro 10 mg tablet SIG: Lexapro 10 mg oral tablet, 28 days, Dispense #84 Tablet, 0 RefillsDirecti ons: Take 3 PO QD (eighty four) 84 tablet 2020 Historic [id number] Seroquel 50 mg tablet SIG: Seroquel 50 mg oral tablet, 28 days, Dispense #28 Tablet, 0 RefillsDirecti ons: Take 1 oral tablet at bedtime (twenty eight) STOP Belsomra 28 tablet 2020 Historic [id number] Percocet 7.5-325 mg tablet SIG: Percocet 7.5-325 mg oral tablet, 28 days, Dispense #84 Tablet, 0 RefillsDirecti ons: Take 1 oral tablet three times a day- as directed (eighty four) 84 tablet 2020 Historic [id number] Lexapro 10 mg tablet SIG: Lexapro 10 mg oral tablet, 28 days, Dispense #84 Tablet, 0 RefillsDirecti ons: Take 3 PO QD (eighty four) 84 tablet 2020 Historic [id number] hydroxyz ine pamoate 25 mg capsule SIG: hydroxyzine pamoate 25 mg oral capsule, 28 days, Dispense #28 Capsule, 2 RefillsDirecti ons: Take 1 oral capsule at bedtime PRN only (twenty eight) 28 capsule 2020 Historic [id number] Lyrica 150 mg capsule SIG: Lyrica 150 mg oral capsule, 28 days, Dispense #56 Capsule, 2 RefillsDirecti ons: Take 1 oral capsule twice a day (fifty six) 56 capsule 2020 Historic [id number] tizanidi ne 2 mg tablet SIG: tizanidine 2 mg oral tablet, 28 days, Dispense #84 Tablet, 2 RefillsDirecti ons: Take 1 oral tablet four times a day- PRN (eighty four) 84 tablet 2020 Historic [id number] meloxica m 7.5 mg tablet SIG: meloxicam 7.5 mg oral tablet, 28 days, Dispense #56 Tablet, 2 RefillsDirecti ons: Take 1 oral tablet twice a day, consistently every 12 hours WITH FOOD (fifty six) 56 tablet 2020 Historic [id number] Seroquel 50 mg tablet SIG: Seroquel 50 mg oral tablet, 28 days, Dispense #28 Tablet, 1 RefillsDirecti ons: Take 1 oral tablet at bedtime (twenty eight) 28 tablet 2020 Historic [id number] Percocet 7.5-325 mg tablet SIG: Percocet 7.5-325 mg oral tablet, 28 days, Dispense #84 Tablet, 0 RefillsDirecti ons: Take 1 oral tablet three times a day- as directed (eighty four) 84 tablet 2020 Historic [id number] Lexapro 10 mg tablet SIG: Lexapro 10 mg oral tablet, 28 days, Dispense #84 Tablet, 1 RefillsDirecti ons: Take 3 PO QD (eighty four) 84 tablet 2020 Historic [id number] Percocet 7.5-325 mg tablet SIG: Percocet 7.5-325 mg oral tablet, 14 days, Dispense #42 Tablet, 0 RefillsDirecti ons: Take 1 oral tablet three times a day- as directed (forty two) PARTIAL FILL 42 tablet 2020 Historic [id number] Percocet 10-325 mg tablet SIG: Percocet 10-325 mg oral tablet, 14 days, Dispense #56 Tablet, 0 RefillsDirecti ons: Take 1 oral tablet four times a day (fifty six) DOSE CHANGE 56 tablet 2020 Historic [id number] Lexapro 20 mg tablet SIG: Lexapro 20 mg oral tablet, 28 days, Dispense #28 Tablet, 0 RefillsDirecti ons: Take 1 PO QD (twenty eight) DOSE CHANGE 28 tablet 2020 Historic [id number] Lyrica 150 mg capsule SIG: Lyrica 150 mg oral capsule, 28 days, Dispense #56 Capsule, 0 RefillsDirecti ons: Take 1 oral capsule twice a day (fifty six) 56 capsule 2020 Historic [id number] tizanidi ne 2 mg tablet SIG: tizanidine 2 mg oral tablet, 28 days, Dispense #84 Tablet, 2 RefillsDirecti ons: Take 1 oral tablet four times a day- PRN (eighty four) 84 tablet 2020 Historic [id number] meloxica m 7.5 mg tablet SIG: meloxicam 7.5 mg oral tablet, 28 days, Dispense #56 Tablet, 2 RefillsDirecti ons: Take 1 oral tablet twice a day, consistently every 12 hours WITH FOOD (fifty six) 56 tablet 2020 Historic [id number] Seroquel 50 mg tablet SIG: Seroquel 50 mg oral tablet, 28 days, Dispense #28 Tablet, 1 RefillsDirecti ons: Take 1 oral tablet at bedtime (twenty eight) 28 tablet 2020 Historic [id number] Narcan 4 mg/actua tion spray,no n-aeroso l SIG: Narcan 4 mg/actuation nasal spray,non-aero ignacia, 2 days, Dispense #2 Each, 0 RefillsDirecti ons: 4mg (contents of 1 nasal spray) as a single dose; may repeat every 2 to 3 minutes. Use in OD only. 2 spray,n on-aero ignacia 2020 Historic [id number] Percocet 10-325 mg tablet SIG: Percocet 10-325 mg oral tablet, 28 days, Dispense #112 Tablet, 0 RefillsDirecti ons: Take 1 oral tablet four times a day (one hundred twelve) 112 tablet 2020 Historic [id number] Lyrica 150 mg capsule SIG: Lyrica 150 mg oral capsule, 28 days, Dispense #56 Capsule, 0 RefillsDirecti ons: Take 1 oral capsule twice a day (fifty six) 56 capsule 2020 Historic [id number] Lexapro 10 mg tablet SIG: Lexapro 10 mg oral tablet, 28 days, Dispense #28 Tablet, 0 RefillsDirecti ons: Take 1 oral tablet once a day (twenty eight) DOSE CHANGE 28 tablet 2021 Historic [id number] hydroxyz ine pamoate 25 mg capsule SIG: hydroxyzine pamoate 25 mg oral capsule, 28 days, Dispense #28 Capsule, 0 RefillsDirecti ons: Take 1 oral capsule at bedtime PRN only (twenty eight) 28 capsule 2021 Historic [id number] Percocet 10-325 mg tablet SIG: Percocet 10-325 mg oral tablet, 28 days, Dispense #112 Tablet, 0 RefillsDirecti ons: Take 1 oral tablet four times a day (one hundred twelve) 112 tablet 2021 Historic [id number] Lyrica 150 mg capsule SIG: Lyrica 150 mg oral capsule, 28 days, Dispense #56 Capsule, 0 RefillsDirecti ons: Take 1 oral capsule twice a day (fifty six) 56 capsule 2021 Historic [id number] Seroquel 50 mg tablet SIG: Seroquel 50 mg oral tablet, 28 days, Dispense #28 Tablet, 0 RefillsDirecti ons: Take 1 oral tablet at bedtime (twenty eight) 28 tablet 2021 Historic [id number] Percocet 10-325 mg tablet SIG: Percocet 10-325 mg oral tablet, 28 days, Dispense #112 Tablet, 0 RefillsDirecti ons: Take 1 oral tablet four times a day (one hundred twelve) 112 tablet 2021 Historic [id number] Lyrica 150 mg capsule SIG: Lyrica 150 mg oral capsule, 28 days, Dispense #56 Capsule, 0 RefillsDirecti ons: Take 1 oral capsule twice a day (fifty six) 56 capsule 2021 Historic [id number] Lexapro 10 mg tablet SIG: Lexapro 10 mg oral tablet, 28 days, Dispense #28 Tablet, 0 RefillsDirecti ons: Take 1 oral tablet once a day (twenty eight) 28 tablet 2021 Historic [id number] tizanidi ne 2 mg tablet SIG: tizanidine 2 mg oral tablet, 28 days, Dispense #84 Tablet, 2 RefillsDirecti ons: Take 1 oral tablet four times a day- PRN (eighty four) 84 tablet 2021 Historic [id number] meloxica m 7.5 mg tablet SIG: meloxicam 7.5 mg oral tablet, 28 days, Dispense #56 Tablet, 2 RefillsDirecti ons: Take 1 oral tablet twice a day, consistently every 12 hours WITH FOOD (fifty six) 56 tablet 2021 Historic [id number] Seroquel 50 mg tablet SIG: Seroquel 50 mg oral tablet, 28 days, Dispense #28 Tablet, 2 RefillsDirecti ons: Take 1 oral tablet at bedtime (twenty eight) 28 tablet 2021 Historic [id number] Percocet 10-325 mg tablet SIG: Percocet 10-325 mg oral tablet, 28 days, Dispense #112 Tablet, 0 RefillsDirecti ons: Take 1 oral tablet four times a day (one hundred twelve) 112 tablet 2021 Historic [id number] Lyrica 150 mg capsule SIG: Lyrica 150 mg oral capsule, 28 days, Dispense #56 Capsule, 2 RefillsDirecti ons: Take 1 oral capsule twice a day (fifty six) 56 capsule 2021 Historic [id number] hydroxyz ine pamoate 25 mg capsule SIG: hydroxyzine pamoate 25 mg oral capsule, 28 days, Dispense #28 Capsule, 1 RefillsDirecti ons: Take 1 oral capsule at bedtime PRN only (twenty eight) 28 capsule 2021 Historic [id number] Lexapro 10 mg tablet SIG: Lexapro 10 mg oral tablet, 28 days, Dispense #28 Tablet, 1 RefillsDirecti ons: Take 1 oral tablet once a day (twenty eight) 28 tablet 2021 Historic [id number] Percocet 10-325 mg tablet SIG: Percocet 10-325 mg oral tablet, 28 days, Dispense #112 Tablet, 0 RefillsDirecti ons: Take 1 oral tablet four times a day (one hundred twelve) 112 tablet 2021 Historic [id number] Percocet 10-325 mg tablet SIG: Percocet 10-325 mg oral tablet, 28 days, Dispense #112 Tablet, 0 RefillsDirecti ons: Take 1 oral tablet four times a day (one hundred twelve) 112 tablet 2021 Historic [id number] Percocet 10-325 mg tablet SIG: Percocet 10-325 mg oral tablet, 28 days, Dispense #112 Tablet, 0 RefillsDirecti ons: Take 1 oral tablet four times a day (one hundred twelve) 112 tablet 2021 Historic [id number] Lyrica 150 mg capsule SIG: Lyrica 150 mg oral capsule, 28 days, Dispense #56 Capsule, 2 RefillsDirecti ons: Take 1 oral capsule twice a day (fifty six) 56 capsule 2021 Historic [id number] hydroxyz ine pamoate 25 mg capsule SIG: hydroxyzine pamoate 25 mg oral capsule, 28 days, Dispense #28 Capsule, 2 RefillsDirecti ons: Take 1 oral capsule at bedtime PRN only (twenty eight) 28 capsule 2021 Historic [id number] Lexapro 10 mg tablet SIG: Lexapro 10 mg oral tablet, 28 days, Dispense #28 Tablet, 2 RefillsDirecti ons: Take 1 oral tablet once a day (twenty eight) 28 tablet 2021 Historic [id number] tizanidi ne 2 mg tablet SIG: tizanidine 2 mg oral tablet, 28 days, Dispense #84 Tablet, 2 RefillsDirecti ons: Take 1 oral tablet four times a day- PRN (eighty four) 84 tablet 2021 Historic [id number] meloxica m 7.5 mg tablet SIG: meloxicam 7.5 mg oral tablet, 28 days, Dispense #56 Tablet, 2 RefillsDirecti ons: Take 1 oral tablet twice a day, consistently every 12 hours WITH FOOD (fifty six) 56 tablet 2021 Historic [id number] Seroquel 50 mg tablet SIG: Seroquel 50 mg oral tablet, 28 days, Dispense #28 Tablet, 2 RefillsDirecti ons: Take 1 oral tablet at bedtime (twenty eight) 28 tablet 2021 Historic [id number] Percocet 10-325 mg tablet SIG: Percocet 10-325 mg oral tablet, 28 days, Dispense #112 Tablet, 0 RefillsDirecti ons: Take 1 oral tablet four times a day (one hundred twelve) 112 tablet 2021 Historic [id number] Lyrica 150 mg capsule SIG: Lyrica 150 mg oral capsule, 28 days, Dispense #84 Capsule, 0 RefillsDirecti ons: Take 1 oral capsule TID (eighty four) SIG CHANGE 84 capsule 2021 Historic [id number] Percocet 10-325 mg tablet SIG: Percocet 10-325 mg oral tablet, 15 days, Dispense #90 Tablet, 0 RefillsDirecti ons: Take 1 oral tablet Q4 hours ATC - for baseline AND post-op meds (ninety) SIG CHANGE 90 tablet 2021 Historic [id number] Lyrica 200 mg capsule SIG: Lyrica 200 mg oral capsule, 28 days, Dispense #84 Capsule, 0 RefillsDirecti ons: Take 1 oral capsule three times a day (eighty four) DOSE CHANGE 84 capsule 2021 Historic [id number] Lyrica 200 mg capsule SIG: Lyrica 200 mg oral capsule, 28 days, Dispense #84 Capsule, 0 RefillsDirecti ons: Take 1 oral capsule three times a day (eighty four) DOSE CHANGE 84 capsule 2021 Historic [id number] Percocet 10-325 mg tablet SIG: Percocet 10-325 mg oral tablet, 15 days, Dispense #90 Tablet, 0 RefillsDirecti ons: Take 1 oral tablet Q4 hours ATC - for baseline AND post-op meds (ninety) 90 tablet 2021 Historic [id number] Lyrica 200 mg capsule SIG: Lyrica 200 mg oral capsule, 28 days, Dispense #84 Capsule, 0 RefillsDirecti ons: Take 1 oral capsule three times a day (eighty four) 84 capsule 2021 Historic [id number] Percocet 10-325 mg tablet SIG: Percocet 10-325 mg oral tablet, 21 days, Dispense #116 Tablet, 0 RefillsDirecti ons: Take 1 oral tablet 5 times a day consistently - for baseline AND post-op meds. May use 6th dose PRN only (one hundred sixteen) SIG CHANGE 116 tablet 2021 Historic [id number] Lyrica 200 mg capsule SIG: Lyrica 200 mg oral capsule, 28 days, Dispense #84 Capsule, 0 RefillsDirecti ons: Take 1 oral capsule three times a day (eighty four) 84 capsule 2021 Historic [id number] Percocet 10-325 mg tablet SIG: Percocet 10-325 mg oral tablet, 28 days, Dispense #160 Tablet, 0 RefillsDirecti ons: Take 1 oral tablet 5 times a day consistently - for baseline AND post-op meds. May use 6th dose PRN only (one hundred sixty) 160 tablet 2021 Historic [id number] Lexapro 10 mg tablet SIG: Lexapro 10 mg oral tablet, 28 days, Dispense #28 Tablet, 2 RefillsDirecti ons: Take 1 oral tablet once a day (twenty eight) 28 tablet 2021 Historic [id number] tizanidi ne 2 mg tablet SIG: tizanidine 2 mg oral tablet, 28 days, Dispense #84 Tablet, 2 RefillsDirecti ons: Take 1 oral tablet four times a day- PRN (eighty four) 84 tablet 2021 Historic [id number] meloxica m 7.5 mg tablet SIG: meloxicam 7.5 mg oral tablet, 28 days, Dispense #56 Tablet, 2 RefillsDirecti ons: Take 1 oral tablet twice a day, consistently every 12 hours WITH FOOD (fifty six) 56 tablet 2021 Historic [id number] Seroquel 50 mg tablet SIG: Seroquel 50 mg oral tablet, 28 days, Dispense #28 Tablet, 2 RefillsDirecti ons: Take 1 oral tablet at bedtime (twenty eight) 28 tablet 2021 Historic [id number] Lyrica 200 mg capsule SIG: Lyrica 200 mg oral capsule, 28 days, Dispense #84 Capsule, 0 RefillsDirecti ons: Take 1 oral capsule three times a day (eighty four) 84 capsule 2021 Historic [id number] Percocet 10-325 mg tablet SIG: Percocet 10-325 mg oral tablet, 28 days, Dispense #140 Tablet, 0 RefillsDirecti ons: Take 1 oral tablet up to 5 times a day as directed (one hundred forty) SIG CHANGE 140 tablet 2021 Historic [id number] Lyrica 200 mg capsule SIG: Lyrica 200 mg oral capsule, 28 days, Dispense #84 Capsule, 0 RefillsDirecti ons: Take 1 oral capsule three times a day (eighty four) 84 capsule 2021 Historic [id number] Percocet 10-325 mg tablet SIG: Percocet 10-325 mg oral tablet, 28 days, Dispense #112 Tablet, 0 RefillsDirecti ons: Take 1 oral tablet QID-as directed (one hundred twelve) SIG CHANGE 112 tablet 2021 Historic [id number] hydroxyz ine pamoate 25 mg capsule SIG: hydroxyzine pamoate 25 mg oral capsule, 28 days, Dispense #28 Capsule, 2 RefillsDirecti ons: Take 1 oral capsule at bedtime PRN only (twenty eight) 28 capsule 2021 Historic [id number] Lyrica 200 mg capsule SIG: Lyrica 200 mg oral capsule, 28 days, Dispense #84 Capsule, 0 RefillsDirecti ons: Take 1 oral capsule three times a day (eighty four) 84 capsule 2021 Historic [id number] Percocet 10-325 mg tablet SIG: Percocet 10-325 mg oral tablet, 28 days, Dispense #112 Tablet, 0 RefillsDirecti ons: Take 1 oral tablet QID-as directed (one hundred twelve) 112 tablet 2021 Historic [id number] Lexapro 10 mg tablet SIG: Lexapro 10 mg oral tablet, 28 days, Dispense #28 Tablet, 2 RefillsDirecti ons: Take 1 oral tablet once a day (twenty eight) 28 tablet 2021 Historic [id number] tizanidi ne 2 mg tablet SIG: tizanidine 2 mg oral tablet, 28 days, Dispense #84 Tablet, 2 RefillsDirecti ons: Take 1 oral tablet four times a day- PRN (eighty four) 84 tablet 2021 Historic [id number] meloxica m 7.5 mg tablet SIG: meloxicam 7.5 mg oral tablet, 28 days, Dispense #56 Tablet, 2 RefillsDirecti ons: Take 1 oral tablet twice a day, consistently every 12 hours WITH FOOD (fifty six) 56 tablet 2021 Historic [id number] Seroquel 50 mg tablet SIG: Seroquel 50 mg oral tablet, 28 days, Dispense #28 Tablet, 2 RefillsDirecti ons: Take 1 oral tablet at bedtime (twenty eight) 28 tablet 2021 Historic [id number] Narcan 4 mg/actua tion spray,no n-aeroso l SIG: Narcan 4 mg/actuation nasal spray,non-aero ignacia, 2 days, Dispense #2 Each, 0 RefillsDirecti ons: 4mg (contents of 1 nasal spray) as a single dose; may repeat every 2 to 3 minutes. Use in OD only. 2 spray,n on-aero ignacia 2021 Current [id number] Lyrica 200 mg capsule SIG: Lyrica 200 mg oral capsule, 28 days, Dispense #84 Capsule, 0 RefillsDirecti ons: Take 1 oral capsule three times a day (eighty four) 84 capsule 2021 Historic [id number] Percocet 10-325 mg tablet SIG: Percocet 10-325 mg oral tablet, 28 days, Dispense #112 Tablet, 0 RefillsDirecti ons: Take 1 oral tablet QID-as directed (one hundred twelve) 112 tablet 2021 Historic Celecoxi b8%Diclo fenac4.4 %Gabapen tin6.4%L idocaine 1.5%Pril ocaine1. 5% 2 Cream SIG: Celecoxib8%Dic lofenac4.4%Conor apentin6.4%Lid ocaine1.5%Pril ocaine1.5% 2 Topical Cream, 28 days, Dispense #100 Gram, 0 Refills, Directions: Apply 2 grams (pumps) 4 times per day- as directed directed to affected area. Use PRN 100 Cream 2021 Current [id number] Adderall 10 mg tablet SIG: Adderall 10 mg oral tablet, 1 days, Dispense #2 Tablet, 0 RefillsDirecti ons: Take 1 oral tablet twice a day 2 tablet 2022 Current [id number] fluoxeti ne 20 mg tablet SIG: fluoxetine 20 mg oral tablet, 1 days, Dispense #1 Tablet, 0 Refills, Directions: Take 1 oral tablet Once a day 1 tablet 2022 Current [id number] Lyrica 200 mg capsule SIG: Lyrica 200 mg oral capsule, 28 days, Dispense #84 Capsule, 0 RefillsDirecti ons: Take 1 oral capsule three times a day (eighty four) 84 capsule 2022 Historic [id number] Percocet 10-325 mg tablet SIG: Percocet 10-325 mg oral tablet, 28 days, Dispense #112 Tablet, 0 RefillsDirecti ons: Take 1 oral tablet QID-as directed (one hundred twelve) 112 tablet 2022 Historic [id number] tizanidi ne 2 mg tablet SIG: tizanidine 2 mg oral tablet, 28 days, Dispense #84 Tablet, 0 RefillsDirecti ons: Take 1 oral tablet four times a day- PRN (eighty four) 84 tablet 2022 Historic [id number] Lyrica 200 mg capsule SIG: Lyrica 200 mg oral capsule, 28 days, Dispense #84 Capsule, 0 RefillsDirecti ons: Take 1 oral capsule three times a day (eighty four) 84 capsule 2022 Historic [id number] Percocet 10-325 mg tablet SIG: Percocet 10-325 mg oral tablet, 28 days, Dispense #112 Tablet, 0 RefillsDirecti ons: Take 1 oral tablet QID-as directed (one hundred twelve) 112 tablet 2022 Historic [id number] Lyrica 200 mg capsule SIG: Lyrica 200 mg oral capsule, 28 days, Dispense #84 Capsule, 0 RefillsDirecti ons: Take 1 oral capsule three times a day (eighty four) 84 capsule 2022 Historic [id number] Percocet 10-325 mg tablet SIG: Percocet 10-325 mg oral tablet, 28 days, Dispense #112 Tablet, 0 RefillsDirecti ons: Take 1 oral tablet QID-as directed (one hundred twelve) 112 tablet 2022 Historic [id number] meloxica m 7.5 mg tablet SIG: meloxicam 7.5 mg oral tablet, 28 days, Dispense #56 Tablet, 0 RefillsDirecti ons: Take 1 oral tablet twice a day, consistently every 12 hours WITH FOOD (fifty six) 56 tablet 2022 Historic [id number] tizanidi ne 2 mg tablet SIG: tizanidine 2 mg oral tablet, 28 days, Dispense #84 Tablet, 0 RefillsDirecti ons: Take 1 oral tablet four times a day- PRN (eighty four) 84 tablet 2022 Historic [id number] Percocet 10-325 mg tablet SIG: Percocet 10-325 mg oral tablet, 28 days, Dispense #112 Tablet, 0 RefillsDirecti ons: Take 1 oral tablet QID-as directed (one hundred twelve) 112 tablet 2022 Current [id number] Lyrica 200 mg capsule SIG: Lyrica 200 mg oral capsule, 28 days, Dispense #84 Capsule, 0 RefillsDirecti ons: Take 1 oral capsule three times a day (eighty four) 84 capsule 2022 Current [id number] meloxica m 7.5 mg tablet SIG: meloxicam 7.5 mg oral tablet, 28 days, Dispense #56 Tablet, 0 RefillsDirecti ons: Take 1 oral tablet twice a day, consistently every 12 hours WITH FOOD (fifty six) 56 tablet 2022 Current [id number] tizanidi ne 2 mg tablet SIG: tizanidine 2 mg oral tablet, 28 days, Dispense #84 Tablet, 0 RefillsDirecti ons: Take 1 oral tablet four times a day- PRN (eighty four) 84 tablet 2022 Current PROBLEMS Problem Code Problem Description Problem Status Problem Da te Problem End Date G89.4-CHRONIC PAIN SYNDROME CHRONIC PAIN SYNDROME Chronic 08/28/2018 M54.5-LOW BACK PAIN LOW BACK PAIN Chronic 08/28/2018 M79.671-Pain in right foot Pain in right foot Chronic 03/10/2022 M79.672-Pain in left foot Pain in left foot Chronic 03/10/2022 PROCEDURES Procedure Description Date Notes NO PROCEDURES PERFORMED ASSESSMENTS Assessment None PLAN OF TREATMENT Assessment Planned Activity LOINC Planned Johnny e None CONSULTATION NOTE Note Author Date None HISTORY AND PHYSICAL NOTE Note Author Date None PROGRESS NOTE Note Author Date None DISCHARGE SUMMARY Note Author Date None CHIEF COMPLAINT AND REASON FOR VISIT FUNCTIONAL STATUS Functional or Cognitive Find ing None MENTAL STATUS Cognitive Finding None ENCOUNTERS Encounter Type Provider Diagnoses Start Date Location Disc harged to None SOCIAL HISTORY Social Status Observation Non-smoker Sex: Male 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
--- OUTSIDE RECORDS SUMMARY | 2025-06-01 10:59 | XMS_ITS ---
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 [employer] Custodian Name Role Phone PINA GOVEA Unavailable ALLERGIES, ADVERSE REACTIONS AND ALERTS Allergy Name Allergy Date Allergy Status Allergy Severity Allergy Reaction Tramadol, [RxNorm: 45269] 05/15/2018 Current skin crawling MEDICATIONS RxNorm Brand Name Prescription Ordered Value Order Unit Start Date Date Status Fill Status Indications [id number] tizanidi ne 2 mg tablet SIG: tizanidine 2 mg oral tablet, 28 days, Dispense #140 Tablet, 0 RefillsDirecti ons: Take one by mouth three times daily and two by mouth QHS (one hundred forty) 140 tablet 2017 Historic [id number] gabapent in 300 mg capsule SIG: gabapentin 300 mg oral capsule, 28 days, Dispense #112 Capsule, 0 RefillsDirecti ons: Take 1 by mouth twice daily and two by mouth QHS (one hundred twelve) 112 capsule 2017 Historic [id number] oxycodon e 5 mg tablet SIG: oxycodone 5 mg oral tablet, 28 days, Dispense #28 Tablet, 0 RefillsDirecti ons: Take 1 oral tablet once a day- PRN only (twenty eight) 28 tablet 2017 Historic [id number] oxycodon e 5 mg tablet SIG: oxycodone 5 mg oral tablet, 10 days, Dispense #10 Tablet, 0 RefillsDirecti ons: Take 1 oral tablet once a day- PRN only (ten) 10 tablet 2017 Historic [id number] oxycodon e 5 mg tablet SIG: oxycodone 5 mg oral tablet, 28 days, Dispense #56 Tablet, 0 RefillsDirecti ons: Take 1 oral tablet twice a day -PRN (fifty six) 56 tablet 2017 Historic [id number] gabapent in 300 mg capsule SIG: gabapentin 300 mg oral capsule, 28 days, Dispense #112 Capsule, 0 RefillsDirecti ons: Take 1 by mouth twice daily and two by mouth QHS (one hundred twelve) 112 capsule 2017 Historic [id number] tizanidi ne 2 mg tablet SIG: tizanidine 2 mg oral tablet, 28 days, Dispense #140 Tablet, 0 RefillsDirecti ons: Take one by mouth three times daily and two by mouth QHS (one hundred forty) 140 tablet 2017 Historic [id number] baclofen 10 mg tablet SIG: baclofen 10 mg oral tablet, 28 days, Dispense #84 Tablet, 0 RefillsDirecti ons: Take 1 oral tablet three times a day (eighty four) 84 tablet 2017 Historic [id number] oxycodon e 5 mg tablet SIG: oxycodone 5 mg oral tablet, 28 days, Dispense #56 Tablet, 0 RefillsDirecti ons: Take 1 oral tablet twice a day -PRN (fifty six) 56 tablet 2017 Historic [id number] gabapent in 300 mg capsule SIG: gabapentin 300 mg oral capsule, 28 days, Dispense #112 Capsule, 0 RefillsDirecti ons: Take 1 by mouth twice daily and two by mouth QHS (one hundred twelve) 112 capsule 2017 Historic [id number] Xanax 1 mg tablet SIG: Xanax 1 mg oral tablet, 1 days, Dispense #1 Tablet, 0 RefillsDirecti ons: Take 1 oral tablet once a day/PRN 1 tablet 2017 Historic [id number] Belsomra 15 mg tablet SIG: Belsomra 15 mg oral tablet, 30 days, Dispense #30 Tablet, 0 RefillsDirecti ons: Take 1 oral tablet at bedtime- QHS (thirty) 30 tablet 2017 Historic [id number] gabapent in 300 mg capsule SIG: gabapentin 300 mg oral capsule, 28 days, Dispense #112 Capsule, 2 RefillsDirecti ons: Take 1 by mouth twice daily and two by mouth QHS (one hundred twelve) 112 capsule 2017 Historic [id number] baclofen 10 mg tablet SIG: baclofen 10 mg oral tablet, 28 days, Dispense #84 Tablet, 2 RefillsDirecti ons: Take 1 oral tablet three times a day (eighty four) 84 tablet 2017 Historic [id number] Narcan 4 mg/actua tion spray,no n-aeroso l SIG: Narcan 4 mg/actuation nasal spray,non-aero ignacia, 2 days, Dispense #2 [place], 0 RefillsDirecti ons: 4mg (contents of 1 nasal spray) as a single dose; may repeat every 2 to 3 minutes. 2 spray,n on-aero ignacia 2017 Historic [id number] oxycodon e 5 mg tablet SIG: oxycodone 5 mg oral tablet, 28 days, Dispense #56 Tablet, 0 RefillsDirecti ons: Take 1 oral tablet twice a day -PRN (fifty six) 56 tablet 2017 Historic [id number] Belsomra 15 mg tablet SIG: Belsomra 15 mg oral tablet, 30 days, Dispense #30 Tablet, 2 RefillsDirecti ons: Take 1 oral tablet at bedtime- QHS (thirty) 30 tablet 2017 Historic [id number] oxycodon e 5 mg tablet SIG: oxycodone 5 mg oral tablet, 28 days, Dispense #56 Tablet, 0 RefillsDirecti ons: Take 1 oral tablet twice a day -PRN (fifty six) 56 tablet 2017 Historic [id number] oxycodon e 5 mg tablet SIG: oxycodone 5 mg oral tablet, 28 days, Dispense #56 Tablet, 0 RefillsDirecti ons: Take 1 oral tablet twice a day -PRN (fifty six) 56 tablet 2017 Historic [id number] tizanidi ne 2 mg tablet SIG: tizanidine 2 mg oral tablet, 28 days, Dispense #112 Tablet, 0 RefillsDirecti ons: Take 1/2-1 by mouth QID- PRN (one hundred forty) 112 tablet 2017 Historic [id number] gabapent in 300 mg capsule SIG: gabapentin 300 mg oral capsule, 28 days, Dispense #112 Capsule, 2 RefillsDirecti ons: Take 1 by mouth twice daily and two by mouth QHS (one hundred twelve) 112 capsule 2017 Historic [id number] oxycodon e 5 mg tablet SIG: oxycodone 5 mg oral tablet, 28 days, Dispense #84 Tablet, 0 RefillsDirecti ons: Take 1 oral tablet TID -PRN (eighty four) 84 tablet 2017 Historic [id number] tizanidi ne 2 mg tablet SIG: tizanidine 2 mg oral tablet, 28 days, Dispense #112 Tablet, 0 RefillsDirecti ons: Take 1/2-1 by mouth QID- PRN (one hundred forty) 112 tablet 2018 Historic [id number] gabapent in 300 mg capsule SIG: gabapentin 300 mg oral capsule, 28 days, Dispense #112 Capsule, 2 RefillsDirecti ons: Take 1 by mouth twice daily and two by mouth QHS (one hundred twelve) 112 capsule 2018 Historic [id number] oxycodon e 5 mg tablet SIG: oxycodone 5 mg oral tablet, 14 days, Dispense #42 Tablet, 0 RefillsDirecti ons: Take 1 oral tablet three times a day- PRN (forty two) PLEASE FILL FOR BRIDGE RX 42 tablet 2018 Historic [id number] oxycodon e 5 mg tablet SIG: oxycodone 5 mg oral tablet, 14 days, Dispense #42 Tablet, 0 RefillsDirecti ons: Take 1 oral tablet three times a day- PRN (forty two) PLEASE FILL FOR BRIDGE RX 42 tablet 2018 Historic [id number] oxycodon e 5 mg tablet SIG: oxycodone 5 mg oral tablet, 7 days, Dispense #21 Tablet, 0 RefillsDirecti ons: Take 1 oral tablet three times a day- PRN (forty two) PLEASE FILL FOR BRIDGE RX 21 tablet 2018 Historic [id number] oxycodon e 5 mg tablet SIG: oxycodone 5 mg oral tablet, 7 days, Dispense #21 Tablet, 0 RefillsDirecti ons: Take 1 oral tablet three times a day- PRN (twenty one) PLEASE FILL FOR BRIDGE RX 21 tablet 2018 Historic [id number] oxycodon e 5 mg tablet SIG: oxycodone 5 mg oral tablet, 4 days, Dispense #12 Tablet, 0 RefillsDirecti ons: Take 1 oral tablet three times a day- PRN (twelve) PLEASE FILL FOR BRIDGE RX 12 tablet 2018 Historic [id number] oxycodon e 5 mg tablet SIG: oxycodone 5 mg oral tablet, 28 days, Dispense #84 Tablet, 0 RefillsDirecti ons: Take 1 oral tablet TID -PRN (eighty four) 84 tablet 2018 Historic [id number] tizanidi ne 2 mg tablet SIG: tizanidine 2 mg oral tablet, 28 days, Dispense #112 Tablet, 0 RefillsDirecti ons: Take 1/2-1 by mouth QID- PRN (one hundred forty) 112 tablet 2018 Historic [id number] oxycodon e 5 mg tablet SIG: oxycodone 5 mg oral tablet, 28 days, Dispense #84 Tablet, 0 RefillsDirecti ons: Take 1 oral tablet TID -PRN (eighty four) 84 tablet 2018 Historic [id number] oxycodon e 5 mg tablet SIG: oxycodone 5 mg oral tablet, 28 days, Dispense #84 Tablet, 0 RefillsDirecti ons: Take 1 oral tablet TID -PRN (eighty four) 84 tablet 2018 Historic [id number] Dilaudid 2 mg tablet SIG: Dilaudid 2 mg oral tablet, 28 days, Dispense #84 Tablet, 0 RefillsDirecti ons: Take 1/2-1 oral tablet three times a day- PRN (eighty four) 84 tablet 2018 Historic [id number] gabapent in 300 mg capsule SIG: gabapentin 300 mg oral capsule, 28 days, Dispense #112 Capsule, 2 RefillsDirecti ons: Take 1 by mouth twice daily and two by mouth QHS (one hundred twelve) 112 capsule 2018 Historic [id number] Belsomra 15 mg tablet SIG: Belsomra 15 mg oral tablet, 30 days, Dispense #30 Tablet, 2 RefillsDirecti ons: Take 1 oral tablet at bedtime- QHS (thirty) 30 tablet 2018 Historic [id number] tizanidi ne 2 mg tablet SIG: tizanidine 2 mg oral tablet, 28 days, Dispense #112 Tablet, 0 RefillsDirecti ons: Take 1/2-1 by mouth QID- PRN (one hundred forty) 112 tablet 2018 Historic [id number] Belsomra 15 mg tablet SIG: Belsomra 15 mg oral tablet, 30 days, Dispense #30 Tablet, 2 RefillsDirecti ons: Take 1 oral tablet at bedtime- QHS (thirty) 30 tablet 2018 Historic [id number] gabapent in 300 mg capsule SIG: gabapentin 300 mg oral capsule, 28 days, Dispense #112 Capsule, 2 RefillsDirecti ons: Take 1 by mouth twice daily and two by mouth QHS (one hundred twelve) 112 capsule 2018 Historic [id number] Dilaudid 2 mg tablet SIG: Dilaudid 2 mg oral tablet, 28 days, Dispense #126 Tablet, 0 RefillsDirecti ons: Take 1.5 oral tablet three times a day- PRN (one hundred twenty six) 126 tablet 2018 Historic [id number] Dilaudid 2 mg tablet SIG: Dilaudid 2 mg oral tablet, 28 days, Dispense #126 Tablet, 0 RefillsDirecti ons: Take 1.5 oral tablet three times a day- PRN (one hundred twenty six) 126 tablet 2018 Historic [id number] Dilaudid 2 mg tablet SIG: Dilaudid 2 mg oral tablet, 28 days, Dispense #126 Tablet, 0 RefillsDirecti ons: Take 1.5 oral tablet three times a day- PRN (one hundred twenty six) 126 tablet 2018 Historic [id number] gabapent in 300 mg capsule SIG: gabapentin 300 mg oral capsule, 28 days, Dispense #112 Capsule, 2 RefillsDirecti ons: Take 1 by mouth twice daily and two by mouth QHS (one hundred twelve) 112 capsule 2018 Historic [id number] Belsomra 15 mg tablet SIG: Belsomra 15 mg oral tablet, 30 days, Dispense #30 Tablet, 2 RefillsDirecti ons: Take 1 oral tablet at bedtime- QHS (thirty) 30 tablet 2018 Historic [id number] tizanidi ne 2 mg tablet SIG: tizanidine 2 mg oral tablet, 28 days, Dispense #112 Tablet, 0 RefillsDirecti ons: Take 1/2-1 by mouth QID- PRN (one hundred forty) 112 tablet 2018 Historic [id number] Dilaudid 2 mg tablet SIG: Dilaudid 2 mg oral tablet, 28 days, Dispense #126 Tablet, 0 RefillsDirecti ons: Take 1.5 oral tablet three times a day- PRN (one hundred twenty six) 126 tablet 2018 Historic [id number] Dilaudid 2 mg tablet SIG: Dilaudid 2 mg oral tablet, 21 days, Dispense #63 Tablet, 0 RefillsDirecti ons: Take 1.5 oral tablet three times a day- PRN (sixty three) 63 tablet 2018 Historic [id number] Dilaudid 2 mg tablet SIG: Dilaudid 2 mg oral tablet, 28 days, Dispense #126 Tablet, 0 RefillsDirecti ons: Take 1.5 oral tablet three times a day- PRN (one hundred twenty six) 126 tablet 2018 Historic [id number] Lyrica 50 mg capsule SIG: Lyrica 50 mg oral capsule, 28 days, Dispense #84 Capsule, 0 RefillsDirecti ons: Take 1 oral capsule QHS, titrate to TID as tolerated (eighty four) 84 capsule 2018 Historic [id number] tizanidi ne 4 mg tablet SIG: tizanidine 4 mg oral tablet, 28 days, Dispense #112 Tablet, 0 RefillsDirecti ons: Take 1/2-1 oral tablet four times a day- PRN (one hundred twelve) 112 tablet 2018 Historic [id number] Dilaudid 2 mg tablet SIG: Dilaudid 2 mg oral tablet, 28 days, Dispense #126 Tablet, 0 RefillsDirecti ons: Take 1.5 oral tablet three times a day- PRN (one hundred twenty six) 126 tablet 2018 Historic [id number] Belsomra 15 mg tablet SIG: Belsomra 15 mg oral tablet, 30 days, Dispense #30 Tablet, 2 RefillsDirecti ons: Take 1 oral tablet at bedtime- QHS (thirty) 30 tablet 2018 Historic [id number] Dilaudid 2 mg tablet SIG: Dilaudid 2 mg oral tablet, 28 days, Dispense #126 Tablet, 0 RefillsDirecti ons: Take 1.5 oral tablet three times a day- PRN (one hundred twenty six) 126 tablet 2018 Historic [id number] Lyrica 75 mg capsule SIG: Lyrica 75 mg oral capsule, 28 days, Dispense #112 Capsule, 0 RefillsDirecti ons: Take 1 PO QAM, 1 at lunch, and 2 PO QHS (one hundred twelve) 112 capsule 2018 Historic [id number] Dilaudid 4 mg tablet SIG: Dilaudid 4 mg oral tablet, 28 days, Dispense #84 Tablet, 0 RefillsDirecti ons: Take 1 oral tablet three times a day (eighty four) 84 tablet 2018 Historic [id number] Dilaudid 4 mg tablet SIG: Dilaudid 4 mg oral tablet, 28 days, Dispense #84 Tablet, 0 RefillsDirecti ons: Take 1 oral tablet three times a day (eighty four) 84 tablet 2018 Historic [id number] Lyrica 75 mg capsule SIG: Lyrica 75 mg oral capsule, 28 days, Dispense #112 Capsule, 0 RefillsDirecti ons: Take 1 PO QAM, 1 at lunch, and 2 PO QHS (one hundred twelve) 112 capsule 2018 Historic [id number] tizanidi ne 4 mg tablet SIG: tizanidine 4 mg oral tablet, 28 days, Dispense #112 Tablet, 0 RefillsDirecti ons: Take 1/2-1 oral tablet four times a day- PRN (one hundred twelve) 112 tablet 2018 Historic [id number] tizanidi ne 4 mg tablet SIG: tizanidine 4 mg oral tablet, 28 days, Dispense #112 Tablet, 0 RefillsDirecti ons: Take 1/2-1 oral tablet four times a day- PRN (one hundred twelve) 112 tablet 2018 Historic [id number] Lyrica 75 mg capsule SIG: Lyrica 75 mg oral capsule, 28 days, Dispense #112 Capsule, 2 RefillsDirecti ons: Take 1 PO QAM, 1 at lunch, and 2 PO QHS (one hundred twelve) 112 capsule 2018 Historic [id number] Percocet 5-325 mg tablet SIG: Percocet 5-325 mg oral tablet, 28 days, Dispense #84 Tablet, 0 RefillsDirecti ons: Take 1/2-1 oral tablet three times a day- as directed (eighty four) 84 tablet 2018 Historic [id number] Percocet 5-325 mg tablet SIG: Percocet 5-325 mg oral tablet, 14 days, Dispense #42 Tablet, 0 RefillsDirecti ons: Take 1/2-1 oral tablet three times a day- as directed (forty two) 42 tablet 2019 Historic [id number] Percocet 5-325 mg tablet SIG: Percocet 5-325 mg oral tablet, 14 days, Dispense #42 Tablet, 0 RefillsDirecti ons: Take 1/2-1 oral tablet three times a day- as directed (forty two) 42 tablet 2019 Historic [id number] Lexapro 10 mg tablet SIG: Lexapro 10 mg oral tablet, 28 days, Dispense #28 Tablet, 0 RefillsDirecti ons: Take 1 oral tablet once a day (twenty eight) 28 tablet 2019 Historic [id number] Lyrica 75 mg capsule SIG: Lyrica 75 mg oral capsule, 28 days, Dispense #112 Capsule, 2 RefillsDirecti ons: Take 1 PO QAM, 1 at lunch, and 2 PO QHS (one hundred twelve) 112 capsule 2019 Historic [id number] Percocet 5-325 mg tablet SIG: Percocet 5-325 mg oral tablet, 7 days, Dispense #21 Tablet, 0 RefillsDirecti ons: Take 1/2-1 oral tablet three times a day- as directed (twenty one) 21 tablet 2019 Historic [id number] Belsomra 15 mg tablet SIG: Belsomra 15 mg oral tablet, 30 days, Dispense #30 Tablet, 2 RefillsDirecti ons: Take 1 oral tablet at bedtime- QHS (thirty) 30 tablet 2019 Historic [id number] Lyrica 75 mg capsule SIG: Lyrica 75 mg oral capsule, 28 days, Dispense #112 Capsule, 2 RefillsDirecti ons: Take 1 PO QAM, 1 at lunch, and 2 PO QHS (one hundred twelve) 112 capsule 2019 Historic [id number] Percocet 5-325 mg tablet SIG: Percocet 5-325 mg oral tablet, 7 days, Dispense #21 Tablet, 0 RefillsDirecti ons: Take 1/2-1 oral tablet three times a day- as directed (twenty one) 21 tablet 2019 Historic [id number] Belsomra 15 mg tablet SIG: Belsomra 15 mg oral tablet, 30 days, Dispense #30 Tablet, 2 RefillsDirecti ons: Take 1 oral tablet at bedtime- QHS (thirty) 30 tablet 2019 Historic [id number] Percocet 5-325 mg tablet SIG: Percocet 5-325 mg oral tablet, 7 days, Dispense #21 Tablet, 0 RefillsDirecti ons: Take 1/2-1 oral tablet three times a day- as directed (twenty one) 21 tablet 2019 Historic [id number] cycloben zaprine 10 mg tablet SIG: cyclobenzaprin e 10 mg oral tablet, 28 days, Dispense #84 Tablet, 0 RefillsDirecti ons: Take 1 oral tablet three times a day- PRN (eighty four) 84 tablet 2019 Historic [id number] Percocet 5-325 mg tablet SIG: Percocet 5-325 mg oral tablet, 10 days, Dispense #30 Tablet, 0 RefillsDirecti ons: Take 1 oral tablet three times a day- as directed (thirty) 30 tablet 2019 Historic [id number] Lexapro 10 mg tablet SIG: Lexapro 10 mg oral tablet, 28 days, Dispense #28 Tablet, 0 RefillsDirecti ons: Take 1 oral tablet once a day (twenty eight) 28 tablet 2019 Historic [id number] Percocet 5-325 mg tablet SIG: Percocet 5-325 mg oral tablet, 10 days, Dispense #30 Tablet, 0 RefillsDirecti ons: Take 1 oral tablet three times a day- as directed (thirty) 30 tablet 2019 Historic [id number] Percocet 5-325 mg tablet SIG: Percocet 5-325 mg oral tablet, 4 days, Dispense #12 Tablet, 0 RefillsDirecti ons: Take 1 oral tablet three times a day- as directed (twelve) 12 tablet 2019 Historic [id number] Percocet 5-325 mg tablet SIG: Percocet 5-325 mg oral tablet, 7 days, Dispense #21 Tablet, 0 RefillsDirecti ons: Take 1 oral tablet three times a day- as directed (twenty one) 21 tablet 2019 Historic [id number] baclofen 10 mg tablet SIG: baclofen 10 mg oral tablet, 14 days, Dispense #42 Tablet, 0 RefillsDirecti ons: Take 1/2-1 oral tablet three times a day- PRN (forty two) 42 tablet 2019 Historic [id number] Percocet 5-325 mg tablet SIG: Percocet 5-325 mg oral tablet, 14 days, Dispense #42 Tablet, 0 RefillsDirecti ons: Take 1 oral tablet three times a day- as directed (forty two) 42 tablet 2019 Historic [id number] Lexapro 10 mg tablet SIG: Lexapro 10 mg oral tablet, 28 days, Dispense #28 Tablet, 0 RefillsDirecti ons: Take 1 oral tablet once a day (twenty eight) 28 tablet 2019 Historic [id number] Lexapro 20 mg tablet SIG: Lexapro 20 mg oral tablet, 28 days, Dispense #28 Tablet, 0 RefillsDirecti ons: Take 1 oral tablet once a day (twenty eight) 28 tablet 2019 Historic [id number] Percocet 7.5-325 mg tablet SIG: Percocet 7.5-325 mg oral tablet, 14 days, Dispense #42 Tablet, 0 RefillsDirecti ons: Take 1 oral tablet three times a day- as directed (forty two) 42 tablet 2019 Historic [id number] baclofen 10 mg tablet SIG: baclofen 10 mg oral tablet, 14 days, Dispense #42 Tablet, 0 RefillsDirecti ons: Take 1/2-1 oral tablet three times a day- PRN (forty two) 42 tablet 2019 Historic [id number] Lexapro 20 mg tablet SIG: Lexapro 20 mg oral tablet, 28 days, Dispense #28 Tablet, 0 RefillsDirecti ons: Take 1 oral tablet once a day (twenty eight) 28 tablet 2019 Historic [id number] Percocet 7.5-325 mg tablet SIG: Percocet 7.5-325 mg oral tablet, 21 days, Dispense #63 Tablet, 0 RefillsDirecti ons: Take 1 oral tablet three times a day- as directed (sixty three) 63 tablet 2019 Historic [id number] baclofen 20 mg tablet SIG: baclofen 20 mg oral tablet, 28 days, Dispense #84 Tablet, 0 RefillsDirecti ons: Take 1/2-1 oral tablet three times a day- PRN (eighty four) 84 tablet 2019 Historic [id number] Narcan 4 mg/actua tion spray,no n-aeroso l SIG: Narcan 4 mg/actuation nasal spray,non-aero ignacia, 2 days, Dispense #2 Each, 0 RefillsDirecti ons: 4mg (contents of 1 nasal spray) as a single dose; may repeat every 2 to 3 minutes. Use in OD only. 2 spray,n on-aero ignacia 2019 Historic [id number] Percocet 7.5-325 mg tablet SIG: Percocet 7.5-325 mg oral tablet, 21 days, Dispense #63 Tablet, 0 RefillsDirecti ons: Take 1 oral tablet three times a day- as directed (sixty three) 63 tablet 2019 Historic [id number] baclofen 20 mg tablet SIG: baclofen 20 mg oral tablet, 28 days, Dispense #84 Tablet, 2 RefillsDirecti ons: Take 1/2-1 oral tablet three times a day- PRN (eighty four) 84 tablet 2019 Historic [id number] Lexapro 20 mg tablet SIG: Lexapro 20 mg oral tablet, 28 days, Dispense #28 Tablet, 2 RefillsDirecti ons: Take 1 oral tablet once a day (twenty eight) 28 tablet 2019 Historic [id number] Percocet 7.5-325 mg tablet SIG: Percocet 7.5-325 mg oral tablet, 7 days, Dispense #21 Tablet, 0 RefillsDirecti ons: Take 1 oral tablet three times a day- as directed (twenty one) 21 tablet 2019 Historic [id number] Percocet 7.5-325 mg tablet SIG: Percocet 7.5-325 mg oral tablet, 28 days, Dispense #84 Tablet, 0 RefillsDirecti ons: Take 1 oral tablet three times a day- as directed (eighty four) 84 tablet 2019 Historic [id number] Lyrica 75 mg capsule SIG: Lyrica 75 mg oral capsule, 28 days, Dispense #112 Capsule, 2 RefillsDirecti ons: Take 1 PO QAM, 1 at lunch, and 2 PO QHS (one hundred twelve) 112 capsule 2019 Historic [id number] Belsomra 15 mg tablet SIG: Belsomra 15 mg oral tablet, 30 days, Dispense #30 Tablet, 2 RefillsDirecti ons: Take 1 oral tablet at bedtime- QHS (thirty) 30 tablet 2019 Historic [id number] baclofen 20 mg tablet SIG: baclofen 20 mg oral tablet, 28 days, Dispense #112 Tablet, 0 RefillsDirecti ons: Take 1 oral tablet four times a day- PRN (one hundred twelve) 112 tablet 2019 Historic [id number] orphenad rine citrate 100 mg tablet extended release SIG: orphenadrine citrate 100 mg oral tablet extended release, 28 days, Dispense #56 Tablet, 0 RefillsDirecti ons: Take 1 oral tablet twice a day, consistently every 12 hours (fifty six) 56 tablet extende d release 2019 Historic [id number] Percocet 7.5-325 mg tablet SIG: Percocet 7.5-325 mg oral tablet, 28 days, Dispense #84 Tablet, 0 RefillsDirecti ons: Take 1 oral tablet three times a day- as directed (eighty four) 84 tablet 2019 Historic [id number] Lexapro 20 mg tablet SIG: Lexapro 20 mg oral tablet, 14 days, Dispense #14 Tablet, 0 RefillsDirecti ons: Take 1 oral tablet once a day (fourteen) 14 tablet 2019 Historic [id number] Percocet 7.5-325 mg tablet SIG: Percocet 7.5-325 mg oral tablet, 14 days, Dispense #42 Tablet, 0 RefillsDirecti ons: Take 1 oral tablet three times a day- as directed (forty two) 42 tablet 2019 Historic [id number] orphenad rine citrate 100 mg tablet extended release SIG: orphenadrine citrate 100 mg oral tablet extended release, 14 days, Dispense #28 Tablet, 0 RefillsDirecti ons: Take 1 oral tablet twice a day, consistently every 12 hours (twenty eight) 28 tablet extende d release 2019 Historic [id number] Lexapro 20 mg tablet SIG: Lexapro 20 mg oral tablet, 14 days, Dispense #14 Tablet, 0 RefillsDirecti ons: Take 1 oral tablet once a day (fourteen) 14 tablet 2019 Historic [id number] Percocet 7.5-325 mg tablet SIG: Percocet 7.5-325 mg oral tablet, 14 days, Dispense #42 Tablet, 0 RefillsDirecti ons: Take 1 oral tablet three times a day- as directed (forty two) 42 tablet 2019 Historic [id number] orphenad rine citrate 100 mg tablet extended release SIG: orphenadrine citrate 100 mg oral tablet extended release, 14 days, Dispense #28 Tablet, 0 RefillsDirecti ons: Take 1 oral tablet twice a day, consistently every 12 hours (twenty eight) 28 tablet extende d release 2019 Historic [id number] Skelaxin 800 mg tablet SIG: Skelaxin 800 mg oral tablet, 28 days, Dispense #84 Tablet, 0 RefillsDirecti ons: Take 1 oral tablet three times a day (eighty four) 84 tablet 2019 Historic [id number] Lexapro 20 mg tablet SIG: Lexapro 20 mg oral tablet, 28 days, Dispense #28 Tablet, 0 RefillsDirecti ons: Take 1 oral tablet once a day (twenty eight) 28 tablet 2019 Historic [id number] Percocet 7.5-325 mg tablet SIG: Percocet 7.5-325 mg oral tablet, 28 days, Dispense #84 Tablet, 0 RefillsDirecti ons: Take 1 oral tablet three times a day- as directed (eighty four) 84 tablet 2019 Historic [id number] chlorzox azone 500 mg tablet SIG: chlorzoxazone 500 mg oral tablet, 28 days, Dispense #84 Tablet, 0 RefillsDirecti ons: Take 1 oral tablet three times a day (eighty four) 84 tablet 2019 Historic [id number] Percocet 7.5-325 mg tablet SIG: Percocet 7.5-325 mg oral tablet, 28 days, Dispense #84 Tablet, 0 RefillsDirecti ons: Take 1 oral tablet three times a day- as directed (eighty four) 84 tablet 2019 Historic [id number] Lyrica 75 mg capsule SIG: Lyrica 75 mg oral capsule, 28 days, Dispense #112 Capsule, 2 RefillsDirecti ons: Take 1 PO QAM, 1 at lunch, and 2 PO QHS (one hundred twelve) 112 capsule 2019 Historic [id number] Lexapro 20 mg tablet SIG: Lexapro 20 mg oral tablet, 28 days, Dispense #42 Tablet, 0 RefillsDirecti ons: Take 1.5 oral tablet once a day (forty two) 42 tablet 2019 Historic [id number] Belsomra 15 mg tablet SIG: Belsomra 15 mg oral tablet, 30 days, Dispense #30 Tablet, 2 RefillsDirecti ons: Take 1 oral tablet at bedtime- QHS (thirty) 30 tablet 2019 Historic [id number] Percocet 7.5-325 mg tablet SIG: Percocet 7.5-325 mg oral tablet, 3 days, Dispense #9 Tablet, 0 RefillsDirecti ons: Take 1 oral tablet three times a day- as directed (nine) 9 tablet 2019 Historic [id number] Lyrica 75 mg capsule SIG: Lyrica 75 mg oral capsule, 3 days, Dispense #12 Capsule, 2 RefillsDirecti ons: Take 1 PO QAM, 1 at lunch, and 2 PO QHS (twelve) 12 capsule 2019 Historic [id number] Lexapro 20 mg tablet SIG: Lexapro 20 mg oral tablet, 3 days, Dispense #5 Tablet, 0 RefillsDirecti ons: Take 1.5 oral tablet once a day (five) 5 tablet 2019 Historic [id number] chlorzox azone 500 mg tablet SIG: chlorzoxazone 500 mg oral tablet, 28 days, Dispense #84 Tablet, 0 RefillsDirecti ons: Take 1 oral tablet three times a day (eighty four) 84 tablet 2019 Historic [id number] Lyrica 75 mg capsule SIG: Lyrica 75 mg oral capsule, 28 days, Dispense #112 Capsule, 0 RefillsDirecti ons: Take 1 PO QAM, 1 at lunch, and 2 PO QHS (one hundred twelve) 112 capsule 2019 Historic [id number] Lexapro 20 mg tablet SIG: Lexapro 20 mg oral tablet, 28 days, Dispense #42 Tablet, 0 RefillsDirecti ons: Take 1.5 oral tablet once a day (forty two) 42 tablet 2019 Historic [id number] chlorzox azone 500 mg tablet SIG: chlorzoxazone 500 mg oral tablet, 28 days, Dispense #112 Tablet, 0 RefillsDirecti ons: Take 1 oral tablet up to four times a day- as directed (one hundred twelve) 112 tablet 2019 Historic [id number] Lexapro 20 mg tablet SIG: Lexapro 20 mg oral tablet, 28 days, Dispense #42 Tablet, 0 RefillsDirecti ons: Take 1.5 oral tablet once a day (forty two) 42 tablet 2019 Historic [id number] Percocet 7.5-325 mg tablet SIG: Percocet 7.5-325 mg oral tablet, 28 days, Dispense #84 Tablet, 0 RefillsDirecti ons: Take 1 oral tablet three times a day- as directed (eighty four) 84 tablet 2019 Historic [id number] Percocet 7.5-325 mg tablet SIG: Percocet 7.5-325 mg oral tablet, 28 days, Dispense #84 Tablet, 0 RefillsDirecti ons: Take 1 oral tablet three times a day- as directed (eighty four) 84 tablet 2019 Historic [id number] Lexapro 20 mg tablet SIG: Lexapro 20 mg oral tablet, 28 days, Dispense #42 Tablet, 0 RefillsDirecti ons: Take 1.5 oral tablet once a day (forty two) 42 tablet 2019 Historic [id number] hydroxyz ine pamoate 25 mg capsule SIG: hydroxyzine pamoate 25 mg oral capsule, 28 days, Dispense #28 Capsule, 0 RefillsDirecti ons: Take 1 oral capsule at bedtime PRN only (twenty eight) 28 capsule 2019 Historic [id number] chlorzox azone 500 mg tablet SIG: chlorzoxazone 500 mg oral tablet, 28 days, Dispense #112 Tablet, 0 RefillsDirecti ons: Take 1 oral tablet up to four times a day- as directed (one hundred twelve) 112 tablet 2019 Historic [id number] chlorzox azone 750 mg tablet SIG: chlorzoxazone 750 mg oral tablet, 28 days, Dispense #112 Tablet, 0 RefillsDirecti ons: Take 1 oral tablet four times a day- PRN (one hundred twelve) 112 tablet 2019 Historic [id number] Percocet 7.5-325 mg tablet SIG: Percocet 7.5-325 mg oral tablet, 28 days, Dispense #84 Tablet, 0 RefillsDirecti ons: Take 1 oral tablet three times a day- as directed (eighty four) 84 tablet 2019 Historic [id number] hydroxyz ine pamoate 25 mg capsule SIG: hydroxyzine pamoate 25 mg oral capsule, 28 days, Dispense #28 Capsule, 2 RefillsDirecti ons: Take 1 oral capsule at bedtime PRN only (twenty eight) 28 capsule 2019 Historic [id number] Lexapro 20 mg tablet SIG: Lexapro 20 mg oral tablet, 28 days, Dispense #42 Tablet, 2 RefillsDirecti ons: Take 1.5 oral tablet once a day (forty two) 42 tablet 2019 Historic [id number] Lyrica 75 mg capsule SIG: Lyrica 75 mg oral capsule, 28 days, Dispense #112 Capsule, 2 RefillsDirecti ons: Take 1 PO QAM, 1 at lunch, and 2 PO QHS (one hundred twelve) 112 capsule 2019 Historic [id number] Lyrica 75 mg capsule SIG: Lyrica 75 mg oral capsule, 28 days, Dispense #112 Capsule, 2 RefillsDirecti ons: Take 1 PO QAM, 1 at lunch, and 2 PO QHS (one hundred twelve) 112 capsule 2020 Historic [id number] Percocet 7.5-325 mg tablet SIG: Percocet 7.5-325 mg oral tablet, 28 days, Dispense #84 Tablet, 0 RefillsDirecti ons: Take 1 oral tablet three times a day- as directed (eighty four) 84 tablet 2020 Historic [id number] tizanidi ne 2 mg tablet SIG: tizanidine 2 mg oral tablet, 28 days, Dispense #84 Tablet, 0 RefillsDirecti ons: Take 1 oral tablet four times a day- PRN (eighty four) 84 tablet 2020 Historic [id number] Lyrica 150 mg capsule SIG: Lyrica 150 mg oral capsule, 28 days, Dispense #56 Capsule, 2 RefillsDirecti ons: Take 1 oral capsule twice a day 56 capsule 2020 Historic [id number] tizanidi ne 2 mg tablet SIG: tizanidine 2 mg oral tablet, 28 days, Dispense #84 Tablet, 3 RefillsDirecti ons: Take 1 oral tablet four times a day- PRN (eighty four) 84 tablet 2020 Historic [id number] Percocet 7.5-325 mg tablet SIG: Percocet 7.5-325 mg oral tablet, 28 days, Dispense #84 Tablet, 0 RefillsDirecti ons: Take 1 oral tablet three times a day- as directed (eighty four) 84 tablet 2020 Historic [id number] Belsomra 15 mg tablet SIG: Belsomra 15 mg oral tablet, 30 days, Dispense #30 Tablet, 2 RefillsDirecti ons: Take 1 oral tablet at bedtime- [facility] (thirty) 30 tablet 2020 Historic [id number] hydroxyz ine pamoate 25 mg capsule SIG: hydroxyzine pamoate 25 mg oral capsule, 28 days, Dispense #28 Capsule, 2 RefillsDirecti ons: Take 1 oral capsule at bedtime PRN only (twenty eight) 28 capsule 2020 Historic [id number] Lexapro 20 mg tablet SIG: Lexapro 20 mg oral tablet, 28 days, Dispense #42 Tablet, 2 RefillsDirecti ons: Take 1.5 oral tablet once a day (forty two) 42 tablet 2020 Historic [id number] Percocet 7.5-325 mg tablet SIG: Percocet 7.5-325 mg oral tablet, 28 days, Dispense #84 Tablet, 0 RefillsDirecti ons: Take 1 oral tablet three times a day- as directed (eighty four) 84 tablet 2020 Historic [id number] Percocet 7.5-325 mg tablet SIG: Percocet 7.5-325 mg oral tablet, 28 days, Dispense #84 Tablet, 0 RefillsDirecti ons: Take 1 oral tablet three times a day- as directed (eighty four) 84 tablet 2020 Historic [id number] Lyrica 150 mg capsule SIG: Lyrica 150 mg oral capsule, 28 days, Dispense #56 Capsule, 2 RefillsDirecti ons: Take 1 oral capsule twice a day (fifty six) 56 capsule 2020 Historic [id number] Percocet 7.5-325 mg tablet SIG: Percocet 7.5-325 mg oral tablet, 28 days, Dispense #84 Tablet, 0 RefillsDirecti ons: Take 1 oral tablet three times a day- as directed (eighty four) 84 tablet 2020 Historic [id number] tizanidi ne 2 mg tablet SIG: tizanidine 2 mg oral tablet, 28 days, Dispense #84 Tablet, 2 RefillsDirecti ons: Take 1 oral tablet four times a day- PRN (eighty four) 84 tablet 2020 Historic [id number] Belsomra 15 mg tablet SIG: Belsomra 15 mg oral tablet, 30 days, Dispense #30 Tablet, 2 RefillsDirecti ons: Take 1 oral tablet at bedtime- [facility] (thirty) 30 tablet 2020 Historic [id number] hydroxyz ine pamoate 25 mg capsule SIG: hydroxyzine pamoate 25 mg oral capsule, 28 days, Dispense #28 Capsule, 2 RefillsDirecti ons: Take 1 oral capsule at bedtime PRN only (twenty eight) 28 capsule 2020 Historic [id number] Lexapro 20 mg tablet SIG: Lexapro 20 mg oral tablet, 28 days, Dispense #42 Tablet, 2 RefillsDirecti ons: Take 1.5 oral tablet once a day (forty two) 42 tablet 2020 Historic [id number] Percocet 7.5-325 mg tablet SIG: Percocet 7.5-325 mg oral tablet, 28 days, Dispense #84 Tablet, 0 RefillsDirecti ons: Take 1 oral tablet three times a day- as directed (eighty four) 84 tablet 2020 Historic [id number] Lexapro 10 mg tablet SIG: Lexapro 10 mg oral tablet, 28 days, Dispense #84 Tablet, 0 RefillsDirecti ons: Take 3 PO QD (eighty four) DOSE CHANGE 84 tablet 2020 Historic [id number] Percocet 7.5-325 mg tablet SIG: Percocet 7.5-325 mg oral tablet, 28 days, Dispense #84 Tablet, 0 RefillsDirecti ons: Take 1 oral tablet three times a day- as directed (eighty four) 84 tablet 2020 Historic [id number] meloxica m 7.5 mg tablet SIG: meloxicam 7.5 mg oral tablet, 28 days, Dispense #56 Tablet, 0 RefillsDirecti ons: Take 1 oral tablet twice a day, consistently every 12 hours WITH FOOD (fifty six) 56 tablet 2020 Historic [id number] Lyrica 150 mg capsule SIG: Lyrica 150 mg oral capsule, 28 days, Dispense #56 Capsule, 2 RefillsDirecti ons: Take 1 oral capsule twice a day (fifty six) 56 capsule 2020 Historic [id number] Percocet 7.5-325 mg tablet SIG: Percocet 7.5-325 mg oral tablet, 28 days, Dispense #84 Tablet, 0 RefillsDirecti ons: Take 1 oral tablet three times a day- as directed (eighty four) 84 tablet 2020 Historic [id number] tizanidi ne 2 mg tablet SIG: tizanidine 2 mg oral tablet, 28 days, Dispense #84 Tablet, 2 RefillsDirecti ons: Take 1 oral tablet four times a day- PRN (eighty four) 84 tablet 2020 Historic [id number] Belsomra 15 mg tablet SIG: Belsomra 15 mg oral tablet, 30 days, Dispense #30 Tablet, 2 RefillsDirecti ons: Take 1 oral tablet at bedtime- [facility] (thirty) 30 tablet 2020 Historic [id number] Lexapro 10 mg tablet SIG: Lexapro 10 mg oral tablet, 28 days, Dispense #84 Tablet, 0 RefillsDirecti ons: Take 3 PO QD (eighty four) 84 tablet 2020 Historic [id number] meloxica m 7.5 mg tablet SIG: meloxicam 7.5 mg oral tablet, 28 days, Dispense #56 Tablet, 1 RefillsDirecti ons: Take 1 oral tablet twice a day, consistently every 12 hours WITH FOOD (fifty six) 56 tablet 2020 Historic [id number] Percocet 7.5-325 mg tablet SIG: Percocet 7.5-325 mg oral tablet, 28 days, Dispense #84 Tablet, 0 RefillsDirecti ons: Take 1 oral tablet three times a day- as directed (eighty four) 84 tablet 2020 Historic [id number] Lexapro 10 mg tablet SIG: Lexapro 10 mg oral tablet, 28 days, Dispense #84 Tablet, 0 RefillsDirecti ons: Take 3 PO QD (eighty four) 84 tablet 2020 Historic [id number] Seroquel 50 mg tablet SIG: Seroquel 50 mg oral tablet, 28 days, Dispense #28 Tablet, 0 RefillsDirecti ons: Take 1 oral tablet at bedtime (twenty eight) STOP Belsomra 28 tablet 2020 Historic [id number] Percocet 7.5-325 mg tablet SIG: Percocet 7.5-325 mg oral tablet, 28 days, Dispense #84 Tablet, 0 RefillsDirecti ons: Take 1 oral tablet three times a day- as directed (eighty four) 84 tablet 2020 Historic [id number] Lexapro 10 mg tablet SIG: Lexapro 10 mg oral tablet, 28 days, Dispense #84 Tablet, 0 RefillsDirecti ons: Take 3 PO QD (eighty four) 84 tablet 2020 Historic [id number] hydroxyz ine pamoate 25 mg capsule SIG: hydroxyzine pamoate 25 mg oral capsule, 28 days, Dispense #28 Capsule, 2 RefillsDirecti ons: Take 1 oral capsule at bedtime PRN only (twenty eight) 28 capsule 2020 Historic [id number] Lyrica 150 mg capsule SIG: Lyrica 150 mg oral capsule, 28 days, Dispense #56 Capsule, 2 RefillsDirecti ons: Take 1 oral capsule twice a day (fifty six) 56 capsule 2020 Historic [id number] tizanidi ne 2 mg tablet SIG: tizanidine 2 mg oral tablet, 28 days, Dispense #84 Tablet, 2 RefillsDirecti ons: Take 1 oral tablet four times a day- PRN (eighty four) 84 tablet 2020 Historic [id number] meloxica m 7.5 mg tablet SIG: meloxicam 7.5 mg oral tablet, 28 days, Dispense #56 Tablet, 2 RefillsDirecti ons: Take 1 oral tablet twice a day, consistently every 12 hours WITH FOOD (fifty six) 56 tablet 2020 Historic [id number] Seroquel 50 mg tablet SIG: Seroquel 50 mg oral tablet, 28 days, Dispense #28 Tablet, 1 RefillsDirecti ons: Take 1 oral tablet at bedtime (twenty eight) 28 tablet 2020 Historic [id number] Percocet 7.5-325 mg tablet SIG: Percocet 7.5-325 mg oral tablet, 28 days, Dispense #84 Tablet, 0 RefillsDirecti ons: Take 1 oral tablet three times a day- as directed (eighty four) 84 tablet 2020 Historic [id number] Lexapro 10 mg tablet SIG: Lexapro 10 mg oral tablet, 28 days, Dispense #84 Tablet, 1 RefillsDirecti ons: Take 3 PO QD (eighty four) 84 tablet 2020 Historic [id number] Percocet 7.5-325 mg tablet SIG: Percocet 7.5-325 mg oral tablet, 14 days, Dispense #42 Tablet, 0 RefillsDirecti ons: Take 1 oral tablet three times a day- as directed (forty two) PARTIAL FILL 42 tablet 2020 Historic [id number] Percocet 10-325 mg tablet SIG: Percocet 10-325 mg oral tablet, 14 days, Dispense #56 Tablet, 0 RefillsDirecti ons: Take 1 oral tablet four times a day (fifty six) DOSE CHANGE 56 tablet 2020 Historic [id number] Lexapro 20 mg tablet SIG: Lexapro 20 mg oral tablet, 28 days, Dispense #28 Tablet, 0 RefillsDirecti ons: Take 1 PO QD (twenty eight) DOSE CHANGE 28 tablet 2020 Historic [id number] Lyrica 150 mg capsule SIG: Lyrica 150 mg oral capsule, 28 days, Dispense #56 Capsule, 0 RefillsDirecti ons: Take 1 oral capsule twice a day (fifty six) 56 capsule 2020 Historic [id number] tizanidi ne 2 mg tablet SIG: tizanidine 2 mg oral tablet, 28 days, Dispense #84 Tablet, 2 RefillsDirecti ons: Take 1 oral tablet four times a day- PRN (eighty four) 84 tablet 2020 Historic [id number] meloxica m 7.5 mg tablet SIG: meloxicam 7.5 mg oral tablet, 28 days, Dispense #56 Tablet, 2 RefillsDirecti ons: Take 1 oral tablet twice a day, consistently every 12 hours WITH FOOD (fifty six) 56 tablet 2020 Historic [id number] Seroquel 50 mg tablet SIG: Seroquel 50 mg oral tablet, 28 days, Dispense #28 Tablet, 1 RefillsDirecti ons: Take 1 oral tablet at bedtime (twenty eight) 28 tablet 2020 Historic [id number] Narcan 4 mg/actua tion spray,no n-aeroso l SIG: Narcan 4 mg/actuation nasal spray,non-aero ignacia, 2 days, Dispense #2 Each, 0 RefillsDirecti ons: 4mg (contents of 1 nasal spray) as a single dose; may repeat every 2 to 3 minutes. Use in OD only. 2 spray,n on-aero ignacia 2020 Historic [id number] Percocet 10-325 mg tablet SIG: Percocet 10-325 mg oral tablet, 28 days, Dispense #112 Tablet, 0 RefillsDirecti ons: Take 1 oral tablet four times a day (one hundred twelve) 112 tablet 2020 Historic [id number] Lyrica 150 mg capsule SIG: Lyrica 150 mg oral capsule, 28 days, Dispense #56 Capsule, 0 RefillsDirecti ons: Take 1 oral capsule twice a day (fifty six) 56 capsule 2020 Historic [id number] Lexapro 10 mg tablet SIG: Lexapro 10 mg oral tablet, 28 days, Dispense #28 Tablet, 0 RefillsDirecti ons: Take 1 oral tablet once a day (twenty eight) DOSE CHANGE 28 tablet 2021 Historic [id number] hydroxyz ine pamoate 25 mg capsule SIG: hydroxyzine pamoate 25 mg oral capsule, 28 days, Dispense #28 Capsule, 0 RefillsDirecti ons: Take 1 oral capsule at bedtime PRN only (twenty eight) 28 capsule 2021 Historic [id number] Percocet 10-325 mg tablet SIG: Percocet 10-325 mg oral tablet, 28 days, Dispense #112 Tablet, 0 RefillsDirecti ons: Take 1 oral tablet four times a day (one hundred twelve) 112 tablet 2021 Historic [id number] Lyrica 150 mg capsule SIG: Lyrica 150 mg oral capsule, 28 days, Dispense #56 Capsule, 0 RefillsDirecti ons: Take 1 oral capsule twice a day (fifty six) 56 capsule 2021 Historic [id number] Seroquel 50 mg tablet SIG: Seroquel 50 mg oral tablet, 28 days, Dispense #28 Tablet, 0 RefillsDirecti ons: Take 1 oral tablet at bedtime (twenty eight) 28 tablet 2021 Historic [id number] Percocet 10-325 mg tablet SIG: Percocet 10-325 mg oral tablet, 28 days, Dispense #112 Tablet, 0 RefillsDirecti ons: Take 1 oral tablet four times a day (one hundred twelve) 112 tablet 2021 Historic [id number] Lyrica 150 mg capsule SIG: Lyrica 150 mg oral capsule, 28 days, Dispense #56 Capsule, 0 RefillsDirecti ons: Take 1 oral capsule twice a day (fifty six) 56 capsule 2021 Historic [id number] Lexapro 10 mg tablet SIG: Lexapro 10 mg oral tablet, 28 days, Dispense #28 Tablet, 0 RefillsDirecti ons: Take 1 oral tablet once a day (twenty eight) 28 tablet 2021 Historic [id number] tizanidi ne 2 mg tablet SIG: tizanidine 2 mg oral tablet, 28 days, Dispense #84 Tablet, 2 RefillsDirecti ons: Take 1 oral tablet four times a day- PRN (eighty four) 84 tablet 2021 Historic [id number] meloxica m 7.5 mg tablet SIG: meloxicam 7.5 mg oral tablet, 28 days, Dispense #56 Tablet, 2 RefillsDirecti ons: Take 1 oral tablet twice a day, consistently every 12 hours WITH FOOD (fifty six) 56 tablet 2021 Historic [id number] Seroquel 50 mg tablet SIG: Seroquel 50 mg oral tablet, 28 days, Dispense #28 Tablet, 2 RefillsDirecti ons: Take 1 oral tablet at bedtime (twenty eight) 28 tablet 2021 Historic [id number] Percocet 10-325 mg tablet SIG: Percocet 10-325 mg oral tablet, 28 days, Dispense #112 Tablet, 0 RefillsDirecti ons: Take 1 oral tablet four times a day (one hundred twelve) 112 tablet 2021 Historic [id number] Lyrica 150 mg capsule SIG: Lyrica 150 mg oral capsule, 28 days, Dispense #56 Capsule, 2 RefillsDirecti ons: Take 1 oral capsule twice a day (fifty six) 56 capsule 2021 Historic [id number] hydroxyz ine pamoate 25 mg capsule SIG: hydroxyzine pamoate 25 mg oral capsule, 28 days, Dispense #28 Capsule, 1 RefillsDirecti ons: Take 1 oral capsule at bedtime PRN only (twenty eight) 28 capsule 2021 Historic [id number] Lexapro 10 mg tablet SIG: Lexapro 10 mg oral tablet, 28 days, Dispense #28 Tablet, 1 RefillsDirecti ons: Take 1 oral tablet once a day (twenty eight) 28 tablet 2021 Historic [id number] Percocet 10-325 mg tablet SIG: Percocet 10-325 mg oral tablet, 28 days, Dispense #112 Tablet, 0 RefillsDirecti ons: Take 1 oral tablet four times a day (one hundred twelve) 112 tablet 2021 Historic [id number] Percocet 10-325 mg tablet SIG: Percocet 10-325 mg oral tablet, 28 days, Dispense #112 Tablet, 0 RefillsDirecti ons: Take 1 oral tablet four times a day (one hundred twelve) 112 tablet 2021 Historic [id number] Percocet 10-325 mg tablet SIG: Percocet 10-325 mg oral tablet, 28 days, Dispense #112 Tablet, 0 RefillsDirecti ons: Take 1 oral tablet four times a day (one hundred twelve) 112 tablet 2021 Historic [id number] Lyrica 150 mg capsule SIG: Lyrica 150 mg oral capsule, 28 days, Dispense #56 Capsule, 2 RefillsDirecti ons: Take 1 oral capsule twice a day (fifty six) 56 capsule 2021 Historic [id number] hydroxyz ine pamoate 25 mg capsule SIG: hydroxyzine pamoate 25 mg oral capsule, 28 days, Dispense #28 Capsule, 2 RefillsDirecti ons: Take 1 oral capsule at bedtime PRN only (twenty eight) 28 capsule 2021 Historic [id number] Lexapro 10 mg tablet SIG: Lexapro 10 mg oral tablet, 28 days, Dispense #28 Tablet, 2 RefillsDirecti ons: Take 1 oral tablet once a day (twenty eight) 28 tablet 2021 Historic [id number] tizanidi ne 2 mg tablet SIG: tizanidine 2 mg oral tablet, 28 days, Dispense #84 Tablet, 2 RefillsDirecti ons: Take 1 oral tablet four times a day- PRN (eighty four) 84 tablet 2021 Historic [id number] meloxica m 7.5 mg tablet SIG: meloxicam 7.5 mg oral tablet, 28 days, Dispense #56 Tablet, 2 RefillsDirecti ons: Take 1 oral tablet twice a day, consistently every 12 hours WITH FOOD (fifty six) 56 tablet 2021 Historic [id number] Seroquel 50 mg tablet SIG: Seroquel 50 mg oral tablet, 28 days, Dispense #28 Tablet, 2 RefillsDirecti ons: Take 1 oral tablet at bedtime (twenty eight) 28 tablet 2021 Historic [id number] Percocet 10-325 mg tablet SIG: Percocet 10-325 mg oral tablet, 28 days, Dispense #112 Tablet, 0 RefillsDirecti ons: Take 1 oral tablet four times a day (one hundred twelve) 112 tablet 2021 Historic [id number] Lyrica 150 mg capsule SIG: Lyrica 150 mg oral capsule, 28 days, Dispense #84 Capsule, 0 RefillsDirecti ons: Take 1 oral capsule TID (eighty four) SIG CHANGE 84 capsule 2021 Historic [id number] Percocet 10-325 mg tablet SIG: Percocet 10-325 mg oral tablet, 15 days, Dispense #90 Tablet, 0 RefillsDirecti ons: Take 1 oral tablet Q4 hours ATC - for baseline AND post-op meds (ninety) SIG CHANGE 90 tablet 2021 Historic [id number] Lyrica 200 mg capsule SIG: Lyrica 200 mg oral capsule, 28 days, Dispense #84 Capsule, 0 RefillsDirecti ons: Take 1 oral capsule three times a day (eighty four) DOSE CHANGE 84 capsule 2021 Historic [id number] Lyrica 200 mg capsule SIG: Lyrica 200 mg oral capsule, 28 days, Dispense #84 Capsule, 0 RefillsDirecti ons: Take 1 oral capsule three times a day (eighty four) DOSE CHANGE 84 capsule 2021 Historic [id number] Percocet 10-325 mg tablet SIG: Percocet 10-325 mg oral tablet, 15 days, Dispense #90 Tablet, 0 RefillsDirecti ons: Take 1 oral tablet Q4 hours ATC - for baseline AND post-op meds (ninety) 90 tablet 2021 Historic [id number] Lyrica 200 mg capsule SIG: Lyrica 200 mg oral capsule, 28 days, Dispense #84 Capsule, 0 RefillsDirecti ons: Take 1 oral capsule three times a day (eighty four) 84 capsule 2021 Historic [id number] Percocet 10-325 mg tablet SIG: Percocet 10-325 mg oral tablet, 21 days, Dispense #116 Tablet, 0 RefillsDirecti ons: Take 1 oral tablet 5 times a day consistently - for baseline AND post-op meds. May use 6th dose PRN only (one hundred sixteen) SIG CHANGE 116 tablet 2021 Historic [id number] Lyrica 200 mg capsule SIG: Lyrica 200 mg oral capsule, 28 days, Dispense #84 Capsule, 0 RefillsDirecti ons: Take 1 oral capsule three times a day (eighty four) 84 capsule 2021 Historic [id number] Percocet 10-325 mg tablet SIG: Percocet 10-325 mg oral tablet, 28 days, Dispense #160 Tablet, 0 RefillsDirecti ons: Take 1 oral tablet 5 times a day consistently - for baseline AND post-op meds. May use 6th dose PRN only (one hundred sixty) 160 tablet 2021 Historic [id number] Lexapro 10 mg tablet SIG: Lexapro 10 mg oral tablet, 28 days, Dispense #28 Tablet, 2 RefillsDirecti ons: Take 1 oral tablet once a day (twenty eight) 28 tablet 2021 Historic [id number] tizanidi ne 2 mg tablet SIG: tizanidine 2 mg oral tablet, 28 days, Dispense #84 Tablet, 2 RefillsDirecti ons: Take 1 oral tablet four times a day- PRN (eighty four) 84 tablet 2021 Historic [id number] meloxica m 7.5 mg tablet SIG: meloxicam 7.5 mg oral tablet, 28 days, Dispense #56 Tablet, 2 RefillsDirecti ons: Take 1 oral tablet twice a day, consistently every 12 hours WITH FOOD (fifty six) 56 tablet 2021 Historic [id number] Seroquel 50 mg tablet SIG: Seroquel 50 mg oral tablet, 28 days, Dispense #28 Tablet, 2 RefillsDirecti ons: Take 1 oral tablet at bedtime (twenty eight) 28 tablet 2021 Historic [id number] Lyrica 200 mg capsule SIG: Lyrica 200 mg oral capsule, 28 days, Dispense #84 Capsule, 0 RefillsDirecti ons: Take 1 oral capsule three times a day (eighty four) 84 capsule 2021 Historic [id number] Percocet 10-325 mg tablet SIG: Percocet 10-325 mg oral tablet, 28 days, Dispense #140 Tablet, 0 RefillsDirecti ons: Take 1 oral tablet up to 5 times a day as directed (one hundred forty) SIG CHANGE 140 tablet 2021 Historic [id number] Lyrica 200 mg capsule SIG: Lyrica 200 mg oral capsule, 28 days, Dispense #84 Capsule, 0 RefillsDirecti ons: Take 1 oral capsule three times a day (eighty four) 84 capsule 2021 Historic [id number] Percocet 10-325 mg tablet SIG: Percocet 10-325 mg oral tablet, 28 days, Dispense #112 Tablet, 0 RefillsDirecti ons: Take 1 oral tablet QID-as directed (one hundred twelve) SIG CHANGE 112 tablet 2021 Historic [id number] hydroxyz ine pamoate 25 mg capsule SIG: hydroxyzine pamoate 25 mg oral capsule, 28 days, Dispense #28 Capsule, 2 RefillsDirecti ons: Take 1 oral capsule at bedtime PRN only (twenty eight) 28 capsule 2021 Historic [id number] Lyrica 200 mg capsule SIG: Lyrica 200 mg oral capsule, 28 days, Dispense #84 Capsule, 0 RefillsDirecti ons: Take 1 oral capsule three times a day (eighty four) 84 capsule 2021 Historic [id number] Percocet 10-325 mg tablet SIG: Percocet 10-325 mg oral tablet, 28 days, Dispense #112 Tablet, 0 RefillsDirecti ons: Take 1 oral tablet QID-as directed (one hundred twelve) 112 tablet 2021 Historic [id number] Lexapro 10 mg tablet SIG: Lexapro 10 mg oral tablet, 28 days, Dispense #28 Tablet, 2 RefillsDirecti ons: Take 1 oral tablet once a day (twenty eight) 28 tablet 2021 Historic [id number] tizanidi ne 2 mg tablet SIG: tizanidine 2 mg oral tablet, 28 days, Dispense #84 Tablet, 2 RefillsDirecti ons: Take 1 oral tablet four times a day- PRN (eighty four) 84 tablet 2021 Historic [id number] meloxica m 7.5 mg tablet SIG: meloxicam 7.5 mg oral tablet, 28 days, Dispense #56 Tablet, 2 RefillsDirecti ons: Take 1 oral tablet twice a day, consistently every 12 hours WITH FOOD (fifty six) 56 tablet 2021 Historic [id number] Seroquel 50 mg tablet SIG: Seroquel 50 mg oral tablet, 28 days, Dispense #28 Tablet, 2 RefillsDirecti ons: Take 1 oral tablet at bedtime (twenty eight) 28 tablet 2021 Historic [id number] Narcan 4 mg/actua tion spray,no n-aeroso l SIG: Narcan 4 mg/actuation nasal spray,non-aero ignacia, 2 days, Dispense #2 Each, 0 RefillsDirecti ons: 4mg (contents of 1 nasal spray) as a single dose; may repeat every 2 to 3 minutes. Use in OD only. 2 spray,n on-aero ignacia 2021 Current [id number] Lyrica 200 mg capsule SIG: Lyrica 200 mg oral capsule, 28 days, Dispense #84 Capsule, 0 RefillsDirecti ons: Take 1 oral capsule three times a day (eighty four) 84 capsule 2021 Historic [id number] Percocet 10-325 mg tablet SIG: Percocet 10-325 [...] area. Use PRN 100 Cream 2021 Current [id number] Adderall 10 mg tablet SIG: Adderall 10 mg oral tablet, 1 days, Dispense #2 Tablet, 0 RefillsDirecti ons: Take 1 oral tablet twice a day 2 tablet 2022 Current [id number] fluoxeti ne 20 mg tablet SIG: fluoxetine 20 mg oral tablet, 1 days, Dispense #1 Tablet, 0 Refills, Directions: Take 1 oral tablet Once a day 1 tablet 2022 Current [id number] Lyrica 200 mg capsule SIG: Lyrica 200 mg oral capsule, 28 days, Dispense #84 Capsule, 0 RefillsDirecti ons: Take 1 oral capsule three times a day (eighty four) 84 capsule 2022 Historic [id number] Percocet 10-325 mg tablet SIG: Percocet 10-325 mg oral tablet, 28 days, Dispense #112 Tablet, 0 RefillsDirecti ons: Take 1 oral tablet QID-as directed (one hundred twelve) 112 tablet 2022 Historic [id number] tizanidi ne 2 mg tablet SIG: tizanidine 2 mg oral tablet, 28 days, Dispense #84 Tablet, 0 RefillsDirecti ons: Take 1 oral tablet four times a day- PRN (eighty four) 84 tablet 2022 Historic [id number] Lyrica 200 mg capsule SIG: Lyrica 200 mg oral capsule, 28 days, Dispense #84 Capsule, 0 RefillsDirecti ons: Take 1 oral capsule three times a day (eighty four) 84 capsule 2022 Historic [id number] Percocet 10-325 mg tablet SIG: Percocet 10-325 mg oral tablet, 28 days, Dispense #112 Tablet, 0 RefillsDirecti ons: Take 1 oral tablet QID-as directed (one hundred twelve) 112 tablet 2022 Historic [id number] Lyrica 200 mg capsule SIG: Lyrica 200 mg oral capsule, 28 days, Dispense #84 Capsule, 0 RefillsDirecti ons: Take 1 oral capsule three times a day (eighty four) 84 capsule 2022 Historic [id number] Percocet 10-325 mg tablet SIG: Percocet 10-325 mg oral tablet, 28 days, Dispense #112 Tablet, 0 RefillsDirecti ons: Take 1 oral tablet QID-as directed (one hundred twelve) 112 tablet 2022 Historic [id number] meloxica m 7.5 mg tablet SIG: meloxicam 7.5 mg oral tablet, 28 days, Dispense #56 Tablet, 0 RefillsDirecti ons: Take 1 oral tablet twice a day, consistently every 12 hours WITH FOOD (fifty six) 56 tablet 2022 Historic [id number] tizanidi ne 2 mg tablet SIG: tizanidine 2 mg oral tablet, 28 days, Dispense #84 Tablet, 0 RefillsDirecti ons: Take 1 oral tablet four times a day- PRN (eighty four) 84 tablet 2022 Historic [id number] Percocet 10-325 mg tablet SIG: Percocet 10-325 mg oral tablet, 28 days, Dispense #112 Tablet, 0 RefillsDirecti ons: Take 1 oral tablet QID-as directed (one hundred twelve) 112 tablet 2022 Current [id number] Lyrica 200 mg capsule SIG: Lyrica 200 mg oral capsule, 28 days, Dispense #84 Capsule, 0 RefillsDirecti ons: Take 1 oral capsule three times a day (eighty four) 84 capsule 2022 Current [id number] meloxica m 7.5 mg tablet SIG: meloxicam 7.5 mg oral tablet, 28 days, Dispense #56 Tablet, 0 RefillsDirecti ons: Take 1 oral tablet twice a day, consistently every 12 hours WITH FOOD (fifty six) 56 tablet 2022 Current [id number] tizanidi ne 2 mg tablet SIG: tizanidine [...] Observation Non-smoker Sex: Male 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
--- NOTE | 2025-06-01 11:03 | ED.URI ---
HPI - URI/Sore Throat General Chief Complaint: Upper Respiratory Infection Stated Complaint: Sore throat Time Seen by Provider: 06/01/25 11:03 History of Present Illness HPI Narrative: 35 y/o male presented for c/o sore throat. Onset 3 days. Pain is to the right side of the throat. Endorses a 'tickle' in the throat which causes a cough. Denies shortness of breath, wheezing nausea vomiting, fevers or lethargy. Using cough drops and throat spray Related Data Allergies Allergy/AdvReac Type Severity Reaction Status Date / Time hydrocodone (From Vicodin) Allergy Hives Verified 06/01/25 11:03 tramadol Allergy Hives Verified 06/01/25 11:03 Review of Systems Review of Systems: CONSTITUTIONAL: Denies body aches, fever, chills, or sweats. EYES: Denies visual changes, redness, or discharge. ENT: reports sore throat Denies rhinorrhea, congestion, or otalgia. CARDIOVASCULAR: Denies chest pain, palpitations, or edema. RESPIRATORY: Denies dyspnea. GASTROINTESTINAL: Denies abdominal pain, nausea, vomiting, or diarrhea. SKIN: Denies rash NEUROLOGIC: Denies headache PMFSH Past Medical History Medical History (Updated 06/01/25 @ 11:21 by Beatriz Wilson APRN) Herniated intervertebral disc of lumbar spine Degenerative disc disease, lumbar s/p laminectomy L4-5 2014. Pain management (oxycodone, dilaudid) epidurals in past. 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 Pain management (oxycodone, dilaudid) epidurals in past. Family History Family History Mother No problems noted. Father No problems noted. Social History Social History (Updated 12/31/24 @ 09:07 by Chris Almazan) Social History: 12/31/24 very confident with medical forms. Smoking status: Never smoker Alcohol intake: current Alcohol use details: 1- 2 times a week - Beer Substance use: never Substance use type: does not use Do You Feel Safe in your Home?: Yes Lack of Transportation: No Lack of Food: Never True Current Housing: I Have Housing Concerned About Future Housing: No Difficulty Paying Gas/Electric Bills: No Difficulty Paying for Meds: No Currently Unemployed: No Education: Bachelor's Degree Difficulty w/ Childcare or Family Care: No Living arrangements: with family Occupation/Education: occupation Gender identity (if verbalized by the patient): Male Exam Narrative: GENERAL: well-appearing, no acute distress. EYES: conjunctivae clear ENT: Mucous membranes moist. TMs pearly moore with normal light reflex bilaterally; no tragal tenderness. Oropharynx mildly erythematous without lesions. Tonsils enlarged 1+ and without exudate. No drooling, no hoarseness, no trismus, uvula midline. No tripod positioning, hot potato voice, or soft palate swelling. NECK: Supple. No lymphadenopathy CHEST: Clear to auscultation, breath sounds equal. No respiratory distress, speaks in full sentences. HEART: Regular rate and rhythm. No murmur heard. SKIN: Warm, dry, no rash. NEURO: Alert and oriented x3. Course Course Emergency Course: Patient is aware of diagnosis, understands and agrees to treatment plan. Anticipatory guidance given. Patient agrees to follow-up as directed and is aware of reasons to seek care at the emergency department. Portions of this record may have been created with voice recognition software Level of Care: Express Care Visit Vital Signs Vital signs: Vital Signs Temperature 97.3 F L 06/01/25 11:05 Pulse Rate 90 06/01/25 11:05 Respiratory Rate 18 06/01/25 11:05 Blood Pressure 121/81 06/01/25 11:05 Pulse Oximetry 100 06/01/25 11:05 Oxygen Delivery Room Air 06/01/25 11:05 Temperature 97.3 F L 06/01/25 11:05 Pulse Rate 90 06/01/25 11:05 Respiratory Rate 18 06/01/25 11:05 Blood Pressure 121/81 06/01/25 11:05 Pulse Oximetry 100 06/01/25 11:05 Oxygen Delivery Room Air 06/01/25 11:05 MDM - URI/Sore Throat MDM Narrative Medical decision making narrative: neg strep result reviewed with pt. Advise supportive treatments. Patient is appropriate for outpatient treatment and follow-up. Differential Diagnosis Differential diagnosis: Likely upper respiratory infection, viral infection and pharyngitis Discharge Plan Discharge Clinical Impression: Pharyngitis Patient Disposition: Home Condition: Stable Instructions: Antibiotic Form, Pharyngitis (ED) Additional Instructions: Rapid strep swab was negative today You will be notified in a few days if the culture comes back positive for strep, and appropriate antibiotics will be called in at that time. if symptoms are due to a viral illness, it is not treated with antibiotics. Viral symptoms can be present for up to 10-14 days. Recommendations: Flonase spray and Zyrtec for sinus congestion Cough syrup may cause drowsiness; avoid driving or take it at night time. Tylenol every 8 hours as needed for pain/fever Soft foods, cool liquids, warm tea. Gargle with warm saltwater twice a day. Chloraseptic spray and throat lozenges. Rest and stay hydrated. --Follow up with your PCP --Go to the ER immediately if you cannot swallow your saliva, trouble breathing/wheezing, throat swelling, pain is persistent and severe Patient Language: Turkish Prescriptions: No Action dextroamphetamine-amphetamine [Adderall] 30 mg tablet 30 mg PO BID Qty: 60 0RF Rx Instructions: administer doses at least 4-6 hours apart fluoxetine 40 mg capsule 40 mg PO DAILY Qty: 90 0RF amitriptyline 25 mg tablet 25 mg PO QHS PRN (Reason: insomnia) Qty: 90 0RF Follow-up/Referrals: Ceci Rankin PA-C [Primary Care Provider] - Time of Disposition: 11:22
[2025-06-01 11:05] VITALS: BP 121/81; PULSE 90; RESP 18; TEMP 36.3; O2SAT 100
[2025-06-01 11:23] LABS: EDSTREPNEGPOS1 Negative (Negative)
== END 2025-06-01 11:23 | disposition home or self-care (01) ==
PROVIDERS: Emergency Provider Nurse Practitioner Family; PCP Physician Assistant Medical
DX: J02.9 Acute pharyngitis, unspecified (principal); M51.369 Other intervertebral disc degeneration, lumbar region without mention of lumbar back pain or lower extremity pain; F41.1 Generalized anxiety disorder; F90.9 Attention-deficit hyperactivity disorder, unspecified type
CPT/HCPCS: 87081; 87880; 99213; G0463